=== PATIENT | female | born 1960 | race Caucasian/White ===

== ENCOUNTER 2017-06-18 15:36 | Emergency (ER) | payer MEDICARE ==
[~2017-06-18] VITALS: Ht 167.6 cm; Wt 80.4 kg
[~2017-06-18 15:36] MED LIST: /AMLO25TA PO; BUPR300T34 PO; CARI350T19 PO; DICY10CA2 PO; HYDR12.55 PO; IPRASOL4 IN; PERC7.5T12 PO; PRED5SOL2 PO; SERT-138 PO; TRAZ100T2 PO; ZITH250T PO
[2017-06-18] MEDS ORDERED: methylPREDNISolone INJ 125 MG/2 ML VIAL (J2930) IV ONE (16:15)
[2017-06-18 16:50] LABS: VENOUS BASE EXCESS 9.7 (-2.0-2.0); VENOUS O2 SATURATION 85.8 % (60.0-80.0); VENOUS PARTIAL PRESSURE CO2 51.5 mmHg (38.0-50.0); VENOUS PARTIAL PRESSURE O2 51.5 mmHg (30.0-50.0); VENOUS STANDARD HCO3 33.1 MEQ/L; VENOUS TOTAL CO2 36.9 MEQ/L (24.0-28.0)
[2017-06-18 17:00] LABS: BASO % 0.1 % (0.0-1.0); EOS # 0.1 K/mm3 (0.0-0.50); EOS % 0.6 % (0.0-3.0); LARGE UNSTAINED CELL # 0.1 K/mm3 (0.0-0.4); LARGE UNSTAINED CELL % 0.5 % (0.0-4.0); LYMPH # 0.6 K/mm3 (1.5-4.5); LYMPH % 4.6 % (24.0-44.0); MEAN CORPUSCULAR HEMOGLOBIN 27.6 pg (27.0-33.0); MEAN CORPUSCULAR VOLUME 86.2 fl (80.0-96.0); MONO # 0.4 K/mm3 (0.0-0.8); MONO % 3.2 % (0.0-5.0); PLATELET COUNT, AUTOMATED 316 k/mm3 (150-450); RED CELL DISTRIBUTION WIDTH 12.2 % (11.5-14.5); WHITE BLOOD COUNT 12.1 K/mm3 (4.0-10.0)
[2017-06-18] MEDS: IPRATROPIUM 0.5MG/ALBUTEROL 2.5MG INH SOL UD 3ML (DUONEB)(J7620) NEB PRN ×3 (17:08→17:27)
[2017-06-18 17:21] LABS: ANION GAP 10 MEQ/L (8-16); BLOOD UREA NITROGEN 9 MG/DL (7-18); CALCIUM LEVEL 9.2 MG/DL (8.5-10.1); CARBON DIOXIDE LEVEL 32 MEQ/L (21-32); CHLORIDE LEVEL 94 MEQ/L (98-107); CREATININE FOR GFR 0.79 MG/DL (0.55-1.02); GLOMERULAR FILTRATION RATE > 60.0 (>51); GLUCOSE, FASTING 132 MG/DL (70-105); POTASSIUM SERUM 3.1 MEQ/L (3.5-5.1); SODIUM LEVEL 136 MEQ/L (136-145)
--- NOTE | 2017-06-18 17:26 | REP ---
Chest x-ray: Two views. History: Dyspnea and cough. Findings: Oxygen delivery tubing and ECG monitoring electrodes overlie the chest. There is a dorsal column stimulator in the mid thoracic level. The lungs are slightly hyperinflated. There are bibasilar linear opacities consistent with discoid atelectasis. These appear to be new when compared with the August 10, 2013 studies. There is a healed rib fracture on the right posterolaterally involving rib number 6. Heart is not enlarged. The patient is status post cervical discectomy and ventral fusion plating. Impression: Mild hyperinflation. Bibasilar discoid atelectasis versus linear fibrosis. Dorsal column stimulator in the thoracic spine and ventral discectomy and fusion plating in the cervical spine noted. Signed by Maurice iDas MD 06/19/2017 09:11 A
[2017-06-18] MEDS ORDERED: MOXIFLOXACIN 400 MG TAB PO ONE (18:00)
[2017-06-18] MEDS ORDERED: PRED20TA PO (18:15)
[2017-06-18] MEDS ORDERED: AVEL1TAB3 PO (18:15)
[2017-06-18] MEDS ORDERED: ALBUTEROL 90 MCG/ACT 8GM HFA INHALER INH ONE (18:15)
[2017-06-18] MEDS ORDERED: POTASSIUM CHLORIDE 10 MEQ SR TABLET PO ONE (18:15)
[2017-06-18 18:46] VITALS: BP 144/68
--- NOTE | 2017-06-18 20:39 | ECGEPIP ---
Stationary ECG Study - ED Test Date: 2017-06-18 Pat Name: JANETH VILLA Department: Room: - Gender: F [employer] Analyst: dayan : 1960 Requested By: WAYLON DOZIER Order Number: [id number] Reading MD: Rox Dean Measurements Intervals [place] Rate: 74 P: -54 WI: 136 QRS: 38 QRSD: 112 T: 101 QT: 409 QTc: 455 Interpretive Statements SINUS RHYTHM MODERATE INTRAVENTRICULAR CONDUCTION DELAY ST DEVIATION AND MODERATE T-WAVE ABNORMALITY, CONSIDER ISCHEMIA, MORE PRONOUNCED COMPARED 08/09/13 Electronically Signed On 06-18-2017 20:38:59 EDT by Rox Dean
== END 2017-06-18 18:53 | disposition home or self-care (01) ==
LOC: M ED 15:36
DX: J44.1 Chronic obstructive pulmonary disease with (acute) exacerbation (principal); Z87.891 Personal history of nicotine dependence; Z88.8 Allergy status to other drugs, medicaments and biological substances; Z91.048 Other nonmedicinal substance allergy status; Z79.52 Long term (current) use of systemic steroids; Z79.899 Other long term (current) drug therapy
CPT/HCPCS: 71020; 80048; 82550; 82553; 82803; 83880; 84484; 85025; 85379; 87040; 87077; 87186; 93005; 94640; 96374; 99285; J2930

== ENCOUNTER 2018-05-07 17:26 | Observation (INO) | payer MEDICARE ==
[2018-05-07] MEDS: NS 1,000 ML IV ×2 (19:22→22:04)
[2018-05-07 20:03] LABS: LACTIC ACID SEPSIS PROTOCOL 1.6 MMOL/L (0.4-2.0)
[2018-05-07 20:06] LABS: ALBUMIN 3.3 GM/DL (3.2-5.2); ALBUMIN/GLOBULIN RATIO 1.06 (1.00-1.93); ALKALINE PHOSPHATASE 69 U/L (45-117); ALT/SGPT 18 U/L (12-78); AMYLASE 41 U/L (25-115); ANION GAP 7 MEQ/L (8-16); AST/SGOT 19 U/L (7-37); BASO % 0.2 % (0.0-1.0); BILIRUBIN,DIRECT < 0.1 MG/DL (0.0-0.2); BILIRUBIN,TOTAL 0.5 MG/DL (0.2-1.0); BLOOD UREA NITROGEN 38 MG/DL (7-18); CARBON DIOXIDE LEVEL 31 MEQ/L (21-32); CHLORIDE LEVEL 99 MEQ/L (98-107); CPK CREATINE PHOSPHOKINASE 94 U/L (26-192); CREATININE FOR GFR 2.05 MG/DL (0.55-1.30); EOS # 0.1 10^3/uL (0.0-0.50); EOS % 1.2 % (0.0-3.0); GLOMERULAR FILTRATION RATE 26.5 (>51); GLUCOSE, FASTING 100 MG/DL (70-100); HEMOGLOBIN 12.2 g/dl (12.0-15.5); IMMATURE GRANULOCYTE % 0.5 % (0-3.0); LIPASE 133 U/L (73-393); LYMPH # 1.1 10^3/uL (1.5-4.5); MB/CK RELATIVE INDEX 2.12 (< OR =4); MEAN CORPUSCULAR HEMOGLOBIN 27.1 pg (27.0-33.0); MEAN CORPUSCULAR HGB CONC 31.3 g/dl (32.0-36.5); MEAN CORPUSCULAR VOLUME 86.5 fl (80.0-96.0); MONO # 0.6 10^3/uL (0.0-0.8); MONO % 7.4 % (0.0-5.0); NEUTROPHILS # 6.3 10^3/uL (1.8-7.7); NEUTROPHILS % 77.7 % (36.0-66.0); PLATELET COUNT, AUTOMATED 279 10^3/uL (150-450); POTASSIUM SERUM 4.4 MEQ/L (3.5-5.1); RED BLOOD COUNT 4.51 10^6/uL (4.00-5.40); RED CELL DISTRIBUTION WIDTH 12.6 % (11.5-14.5); SODIUM LEVEL 137 MEQ/L (136-145); TOTAL PROTEIN 6.4 GM/DL (6.4-8.2); TROPONIN I < 0.02 NG/ML (< 0.10); WHITE BLOOD COUNT 8.2 10^3/uL (4.0-10.0)
[2018-05-07 20:13] LABS: KETONE, URINE AUTO RFX TRACE mg/dL (NEGATIVE); LEUKOCYTE ESTERASE UR AUTO RFX NEGATIVE (NEGATIVE); MUCUS, URINE RFX SMALL (NEGATIVE); NITRITE, URINE AUTO RFX NEGATIVE (NEGATIVE); RBC, URINE AUTO RFX 6 /HPF (0-3); SPECIFIC GRAVITY UR AUTO RFX 1.016 (1.002-1.035); SQUAM EPITHELIAL CELL UR AURFX 0 /HPF (0-6); WBC, URINE AUTO RFX 2 /HPF (0-3)
[2018-05-07 20:27] LABS: CONTROL LINE HCG INT CTR LINE PRESENT; HCG, SERUM QUALITATIVE NEGATIVE (NEGATIVE)
[2018-05-07] MEDS: ONDANSETRON 4MG/2ML VIAL (J2405) IV (20:45)
[2018-05-07 21:04] LABS: ABG BASE EXCESS -1.3 (-2.0-2.0); ABG O2 SATURATION 95.9 % (95.0-99.0); ABG PARTIAL PRESSURE CO2 48.4 mmHg (35.0-45.0); ABG PARTIAL PRESSURE O2 87.4 mmHg (75.0-100.0); ABG STANDARD HCO3 23.4 MEQ/L (22.0-26.0); ABG TOTAL CO2 26.5 MEQ/L (22.0-29.0); ABG pH (ARTERIAL) 7.331 UNITS (7.350-7.450)
[2018-05-08] MEDS ORDERED: IPRATROPIUM 0.5MG/ALBUTEROL 2.5MG INH SOL UD 3ML (DUONEB)(J7620) INH (01:00)
[2018-05-08] MEDS ORDERED: BISACODYL 5 MG TAB PO (01:00)
[2018-05-08] MEDS: BACLOFEN 10 MG TAB PO ×3 (02:11→20:29)
[2018-05-08] MEDS: NS 1,000 ML IV ×3 (02:12→20:40)
[2018-05-08] MEDS: GABAPENTIN 400 MG CAP PO ×4 (02:12→20:29)
[2018-05-08] MEDS: traZODone 100 MG TAB PO ×3 (02:12→22:18)
[2018-05-08] MEDS: buPROPion **SR TABLET** (ZYBAN) 150MG PO ×3 (03:00→20:29)
[2018-05-08] MEDS: HEPARIN SOD (PORCINE) 5000 UNITS/ML VIAL SC ×3 (05:06→20:36)
[2018-05-08 06:44] LABS: ALBUMIN 2.8 GM/DL (3.2-5.2); ALBUMIN/GLOBULIN RATIO 1.12 (1.00-1.93); ALKALINE PHOSPHATASE 59 U/L (45-117); ALT/SGPT 15 U/L (12-78); ANION GAP 5 MEQ/L (8-16); AST/SGOT 13 U/L (7-37); BILIRUBIN,TOTAL 0.4 MG/DL (0.2-1.0); BLOOD UREA NITROGEN 29 MG/DL (7-18); CALCIUM LEVEL 7.5 MG/DL (8.5-10.1); CARBON DIOXIDE LEVEL 31 MEQ/L (21-32); CHLORIDE LEVEL 106 MEQ/L (98-107); CREATININE FOR GFR 1.42 MG/DL (0.55-1.30); GLOMERULAR FILTRATION RATE 40.4 (>51); GLUCOSE, FASTING 97 MG/DL (70-100); MAGNESIUM LEVEL 1.9 MG/DL (1.8-2.4); POTASSIUM SERUM 3.8 MEQ/L (3.5-5.1); SODIUM LEVEL 142 MEQ/L (136-145); TOTAL PROTEIN 5.3 GM/DL (6.4-8.2)
[2018-05-08] MEDS: ADVAIR HFA 230/21MCG INHALER INH ×2 (09:00→21:23)
[2018-05-08] MEDS: SERTRALINE 100 MG TAB PO (09:12)
[2018-05-08] MEDS: ACETAMINOPHEN TAB 650MG DOSE (2X325MG) PO (20:30)
[2018-05-09] MEDS: ONDANSETRON 4 MG TAB (S0181) PO (03:37)
[2018-05-09] MEDS: ACETAMINOPHEN TAB 650MG DOSE (2X325MG) PO (04:33)
[2018-05-09] MEDS: HEPARIN SOD (PORCINE) 5000 UNITS/ML VIAL SC ×2 (05:09→14:36)
[2018-05-09 06:27] LABS: BASO % 0.4 % (0.0-1.0); EOS # 0.2 10^3/uL (0.0-0.50); EOS % 3.5 % (0.0-3.0); HEMATOCRIT 34.5 % (36.0-47.0); HEMOGLOBIN 10.7 g/dl (12.0-15.5); IMMATURE GRANULOCYTE % 0.4 % (0-3.0); LYMPH # 1.2 10^3/uL (1.5-4.5); LYMPH % 23.9 % (24.0-44.0); MEAN CORPUSCULAR HEMOGLOBIN 27.4 pg (27.0-33.0); MEAN CORPUSCULAR VOLUME 88.5 fl (80.0-96.0); MONO # 0.5 10^3/uL (0.0-0.8); MONO % 9.5 % (0.0-5.0); NEUTROPHILS % 62.3 % (36.0-66.0); PLATELET COUNT, AUTOMATED 237 10^3/uL (150-450); RED CELL DISTRIBUTION WIDTH 12.4 % (11.5-14.5); WHITE BLOOD COUNT 4.9 10^3/uL (4.0-10.0)
[2018-05-09 06:54] LABS: ANION GAP 5 MEQ/L (8-16); BLOOD UREA NITROGEN 17 MG/DL (7-18); CALCIUM LEVEL 8.4 MG/DL (8.5-10.1); CARBON DIOXIDE LEVEL 32 MEQ/L (21-32); CHLORIDE LEVEL 108 MEQ/L (98-107); CREATININE FOR GFR 0.91 MG/DL (0.55-1.30); GLOMERULAR FILTRATION RATE > 60.0 (>51); GLUCOSE, FASTING 92 MG/DL (70-100); POTASSIUM SERUM 4.5 MEQ/L (3.5-5.1); SODIUM LEVEL 145 MEQ/L (136-145)
[2018-05-09] MEDS: SERTRALINE 100 MG TAB PO (09:08)
[2018-05-09] MEDS: BACLOFEN 10 MG TAB PO (09:08)
[2018-05-09] MEDS: GABAPENTIN 400 MG CAP PO ×2 (09:08→15:19)
[2018-05-09] MEDS: buPROPion **SR TABLET** (ZYBAN) 150MG PO (09:08)
[2018-05-09] MEDS: ADVAIR HFA 230/21MCG INHALER INH (11:40)
[2018-05-09] MEDS ORDERED: KETOROLAC 30 MG/ML VIAL (J1885) IV (13:15)
[2018-05-09] MEDS: ACETAMINOPHEN 500 MG TAB PO (15:20)
== END 2018-05-09 16:29 | disposition home or self-care (01) ==
LOC: M ED INP 17:27 → M MSPAV 05-08 01:52 → M ED 17:26
DX: N17.9 Acute kidney failure, unspecified (principal); E86.0 Dehydration; R19.7 Diarrhea, unspecified; K52.9 Noninfective gastroenteritis and colitis, unspecified; F32.9 Major depressive disorder, single episode, unspecified; F41.9 Anxiety disorder, unspecified; J44.9 Chronic obstructive pulmonary disease, unspecified; I10 Essential (primary) hypertension; M54.5 Low back pain; M54.2 Cervicalgia; Z79.899 Other long term (current) drug therapy
CPT/HCPCS: J2405

== ENCOUNTER 2018-08-17 22:52 | Emergency (ER) | payer MEDICARE ==
[2018-08-17] MEDS: DERMABOND TOPICAL SKIN ADHESIVE TOP (23:45)
[2018-08-18] MEDS: NORCO, ANEXSIA 5/325MG TABLET (HYDROcodone/ACETAMINOPHEN) PO (00:15)
== END 2018-08-18 00:29 | disposition home or self-care (01) ==
LOC: M ED 22:52
DX: S61.211A Laceration without foreign body of left index finger without damage to nail, initial encounter (principal); W22.8XXA Striking against or struck by other objects, initial encounter; Y92.019 Unspecified place in single-family (private) house as the place of occurrence of the external cause
CPT/HCPCS: 12001

== ENCOUNTER 2020-08-23 20:23 | Inpatient (IN) | payer MEDICARE ==
[~2020-08-23] VITALS: Ht 167.6 cm; Wt 75.6 kg
[~2020-08-23 20:23] MED LIST changes: -/AMLO25TA PO; +AMLO1TAB25 PO; +AVEL1TAB3 PO; +BACL10TA2 PO; +BACL1TAB8 PO; +BREO1INH3 INH; +BUPR150T5 PO; +GABA-845 PO; +HYDR-3715 PO; +IPRA0.00 INH; +LISI-538 PO; +MELO15TA28 PO; +NORV2TAB PO; +PRED20TA PO
[2020-08-23] MEDS ORDERED: NS 1,000 ML IV ONE (21:00)
[2020-08-23] MEDS ORDERED: ACETAMINOPHEN TAB 650MG DOSE (2X325MG) PO ONE (21:00)
[2020-08-23] MEDS ORDERED: KETOROLAC 30 MG/ML 1ML VIAL IV ONE (21:00)
[2020-08-23] MEDS ORDERED: ONDANSETRON 4MG/2ML VIAL IV ONE (21:00)
[2020-08-23 21:57] LABS: HEMATOCRIT 34.4 % (36.0-47.0); MEAN CORPUSCULAR HEMOGLOBIN 27.2 pg (27.0-33.0); MEAN CORPUSCULAR VOLUME 85.1 fl (80.0-96.0); RED BLOOD COUNT 4.04 10^6/uL (4.00-5.40); WHITE BLOOD COUNT 1.3 10^3/uL (4.0-10.0)
[2020-08-23 22:07] LABS: INR 1.05; PARTIAL THROMBOPLASTIN TIME 27.2 SECONDS (24.2-38.5); PROTHROMBIN TIME 13.9 SECONDS (12.5-14.3)
[2020-08-23 22:14] LABS: PLATELET COUNT, AUTOMATED 83 10^3/uL (150-450)
[2020-08-23 22:22] LABS: ATYPICAL LYMPH 1 % (0-5); BASOPHILS 1 % (0-1); LYMPHOCYTES 13 % (16-44); MONOCYTES 13 % (0-5); MYELOCYTES 2 % (0-0); NEUTROPHILS 70 % (28-66); PLATELET ESTIMATE DECREASED (NORMAL)
[2020-08-23 22:26] LABS: ALBUMIN 3.1 GM/DL (3.2-5.2); ALT/SGPT 26 U/L (12-78); BILIRUBIN,DIRECT 0.1 MG/DL (0.0-0.2); BILIRUBIN,TOTAL 0.4 MG/DL (0.2-1.0); BLOOD UREA NITROGEN 18 MG/DL (7-18); CALCIUM LEVEL 8.1 MG/DL (8.8-10.2); CARBON DIOXIDE LEVEL 31 MEQ/L (21-32); CHLORIDE LEVEL 95 MEQ/L (98-107); CK-MB VALUE MASS < 1.0 NG/ML (<3.6); CPK CREATINE PHOSPHOKINASE 55 U/L (26-192); CREATININE FOR GFR 0.98 MG/DL (0.55-1.30); GLOMERULAR FILTRATION RATE > 60.0 (>45); GLUCOSE, FASTING 121 MG/DL (70-100); LIPASE 156 U/L (73-393); MB/CK RELATIVE INDEX 1.82 (< OR =4); POTASSIUM SERUM 3.5 MEQ/L (3.5-5.1); SODIUM LEVEL 134 MEQ/L (136-145); TOTAL PROTEIN 6.1 GM/DL (6.4-8.2); TROPONIN I < 0.02 NG/ML (< 0.10)
[2020-08-23] MEDS ORDERED: ISOVUE-370 76% 100ML VIAL As Ordered ONE (23:10)
--- NOTE | 2020-08-24 00:13 | REPVR ---
PROCEDURE INFORMATION: Exam: CT Abdomen And Pelvis With Contrast Exam date and time: 08/23/2020 11:21 PM Age: 60 years old Clinical indication: Fever; Abdominal pain; Generalized; Additional info: Generalized abd pain, febrile TECHNIQUE: Imaging protocol: Computed tomography of the abdomen and pelvis with intravenous contrast. Radiation optimization: All CT scans at this facility use at least one of these dose optimization techniques: automated exposure control; mA and/or kV adjustment per patient size (includes targeted exams where dose is matched to clinical indication); or iterative reconstruction. Contrast material: ISOVUE 370; Contrast volume: 100 ml; Contrast route: INTRAVENOUS (IV); COMPARISON: CT ABD PELVIS W/O CONTRAST 05/07/2018 8:33 PM FINDINGS: Tubes, catheters and devices: A neurostimulator device was partially imaged. Lungs: There is atelectasis in the right lower lobe. The lungs were not fully imaged. Heart: No cardiomegaly or pericardial effusion. Liver: Unremarkable. No liver lesion is identified. The contour of the liver is smooth. No hepatomegaly is noted. Gallbladder and bile ducts: No calcified gallstones are noted. No gallbladder wall thickening, pericholecystic fluid, or pericholecystic inflammatory changes are identified. No dilation of the bile ducts is noted. No calcified stones are seen in the common bile duct. Pancreas: Normal. No dilation of the main pancreatic duct is noted. There is no inflammatory fat stranding around the pancreas to suggest acute pancreatitis. Spleen: Normal. No splenomegaly is noted. Adrenals: Normal. No adrenal mass is noted. Kidneys and ureters: The kidneys are normal in appearance. No renal lesion is noted. No stones are noted in the kidneys or ureters. There is no hydronephrosis or hydroureter. Stomach and bowel: There is thickening of the wall of the gastric antrum. The small bowel is unremarkable. There is sigmoid diverticulosis without evidence for diverticulitis. There is no evidence for a bowel obstruction, colitis, pneumatosis intestinalis, intussusception, volvulus, or perforated viscus. There is a 5 mm focus of high density within the lumen of the cecum, which may represent ingested material. Appendix: There is intraluminal high density within the appendix, which may represent high density ingested material or appendicoliths. The appendix is not dilated and there is no inflammatory fat stranding or fluid around the appendix to indicate appendicitis. Intraperitoneal space: No abscess. No ascites. No free air. Retroperitoneal space: No fluid collection. No mass. Vasculature: The abdominal aorta is patent, normal in caliber, and there is no dissection. The iliac arteries, common femoral arteries, renal arteries, celiac artery, superior mesenteric artery, and inferior mesenteric artery are patent. There are extensive atherosclerotic calcifications. Lymph nodes: No enlarged lymph nodes. Urinary bladder: The partially distended urinary bladder is unremarkable. No stones or masses are seen in the bladder. Reproductive: There has been a hysterectomy. Bones/joints: There is no fracture or dislocation. No suspicious osteolytic or osteoblastic lesion. There are degenerative changes involving the lumbar spine. Soft tissues: There is a small fat containing periumbilical hernia located just to the left of the umbilicus that is similar in appearance compared to the prior CT on 05/07/2018. IMPRESSION: 1. Thickening of the wall of the gastric antrum, which may indicate gastritis. 2. Sigmoid diverticulosis without evidence for diverticulitis. 3. Small fat containing periumbilical hernia located just to the left of the umbilicus that is similar in appearance compared to the prior CT on 05/07/2018. Electronically signed by: Richard Barahona On 08/24/2020 00:13:33 AM
[2020-08-24] MEDS ORDERED: NS 2,260 ML in IV 1 EA IV ONE (00:30)
[2020-08-24] MEDS ORDERED: PIPERACILLIN/TAZOBACTAM SOD 3.375 GM in D5W MINI-BAG PLUS 50 ML IV ONE (00:30)
--- NOTE | 2020-08-24 01:12 | REPVR ---
PROCEDURE INFORMATION: Exam: XR Chest, 1 View Exam date and time: 08/24/2020 12:51 AM Age: 60 years old Clinical indication: Pain; Neutropenic fever, unknown source TECHNIQUE: Imaging protocol: XR of the chest Views: 1 view. COMPARISON: CR Chest, 2 view PA, Lat 06/18/2017 4:26 PM FINDINGS: Tubes, catheters and devices: Neurostimulator leads are noted in the thoracic spine. Lungs: Unremarkable. No consolidation. No pulmonary edema. Pleural space: Unremarkable. No pleural effusion or pneumothorax is identified. Heart/Mediastinum: The cardiac silhouette is top normal in size. Vasculature: There are atherosclerotic calcifications of the aortic arch. Bones/joints: Screw and plate fixation hardware is noted in the cervical spine, which was not fully imaged. There are old healed fracture deformities involving the right posterolateral 6th and 7th ribs. IMPRESSION: No radiographic evidence for an acute cardiopulmonary process. Electronically signed by: Richard Barahona On 08/24/2020 01:12:55 AM
[2020-08-24] MEDS ORDERED: HYDR12.55 PO (01:13)
[2020-08-24] MEDS ORDERED: VITMTA PO (01:13)
[2020-08-24] MEDS ORDERED: TRAZ-189 PO (01:13)
[2020-08-24] MEDS ORDERED: GABA800T4 PO (01:13)
[2020-08-24] MEDS ORDERED: BREO1INH INH (01:13)
[2020-08-24] MEDS ORDERED: SERT-138 PO (01:13)
[2020-08-24] MEDS ORDERED: ALBU83IN INH (01:13)
[2020-08-24 04:42] LABS: INFLUENZA A AMPLIFICATION NEGATIVE (NEGATIVE); INFLUENZA B AMPLIFICATION NEGATIVE (NEGATIVE)
[2020-08-24] MEDS ORDERED: ALBUTEROL SULFATE 2.5 MG/0.5 ML INH NEB SOLN INH PRN (06:15)
[2020-08-24 06:17] LABS: HEMATOCRIT 32.2 % (36.0-47.0); HEMOGLOBIN 10.3 g/dl (12.0-15.5); MEAN CORPUSCULAR HEMOGLOBIN 27.5 pg (27.0-33.0); MEAN CORPUSCULAR VOLUME 86.1 fl (80.0-96.0); RED BLOOD COUNT 3.74 10^6/uL (4.00-5.40); WHITE BLOOD COUNT 1.4 10^3/uL (4.0-10.0)
[2020-08-24 06:19] LABS: PLATELET COUNT, AUTOMATED 74 10^3/uL (150-450)
--- NOTE | 2020-08-24 06:31 | HPEPDOC ---
[facility] Medical History & Physical Date of Admission Aug 24, 2020 Date of Service: Aug 24, 2020 Attending Physician: LORRAINE QUESADA DO History and Physical CHIEF COMPLAINT: Fever and abdominal pain HISTORY OF PRESENT ILLNESS: Patient is a 60-year-old female who presented to the [facility] emergency department with complaint of abdominal pain and fever. She stated that on Sunday into Sunday she developed some abdominal pain was mainly located in her lower abdomen. She stated that on Sunday she had developed fevers. Additionally she did note some nausea and had a couple episodes of emesis. She denied any diarrhea. She does state that she had some constipation. Patient stated that she continued to have abdominal pain as well as fevers and chills. She is also currently presented to the [facility] emergency department. On presentation to the emergency department the patient was found to be febrile with a temperature of 101.2 but otherwise vitally stable. Laboratory examination demonstrated a pancytopenia with a leukocyte count of 1.3 with moderate neutroph orestes, absolute neutrophil count of 900, anemia with hemoglobin 11 and, cytopenia with the count of 83. Blood cultures were drawn and the patient was started on empiric antibiotics for neutropenic fever. Hospitalist service was consulted and the patient was admitted for further evaluation and management PAST MEDICAL HISTORY: 1. Hypertension 2. COPD 3. Depression 4. Chronic Low Back Pain PAST SURGICAL HISTORY: 1. Discectomy 2. Spinal Stimulator placement 3. Hysterectomy SOCIAL HISTORY: Patient lives at home with her . She is a former smoker she smoked approximately 1 pack per day since the age of 17. She quit 5 years ago. She denies any history of IV or illicit drug use. she's currently on disability secondary to chronic neck and back pain. FAMILY HISTORY: Patient denies any family history of cancers or autoimmune diseases. ALLERGIES: Please see below. REVIEW OF SYSTEMS: CONSTITUTIONAL: Admits to fevers and chills. denies night sweats. denies unintentional weight loss or weight gain HEENT: Denies headache. Denies dysphagia. Denies odontophagia. Denies change in vision.. CARDIOVASCULAR: Denies palpitations. Denies feelings of the heart racing. Denies chest pain. RESPIRATORY:Ours of breath. Denies cough. Denies wheezing.. GASTROINTESTINAL: Admits to abdominal pain. Admits to constipation. Denies diarrhea. Denies bloody stools. Admits to nausea and vomiting. GENITOURINARY: As difficulty with urination. Denies increased frequency. denies dysuria.. SKIN: Denies any rashes or lesions. MUSCULOSKELETAL: Admits to chronic lower back pain as well as neck pain. NEUROLOGICAL: Denies any changes in her gait. denies any changes in her speech. PSYCHIATRIC: Admits to History of anxiety depression.. ENDOCRINE: Denies any heat intolerance or cold intolerance. HEMATOLOGIC/LYMPHATIC: Denies any history of easy bruising or bleeding. Denies any history of DVT or pulmonary embolism.. HOME MEDICATIONS: Please see below. PHYSICAL EXAMINATION: VITAL SIGNS: Temperature 101.2, pulse 94, respiratory rate 20, blood pressure 114\50, pulse oximetry 99 % on 2 L nasal cannula GENERAL APPEARANCE: She is awake alert oriented. She does not appear any acute distress. She is lying comfortably in bed.. HEENT: Atraumatic. Normocephalic. Eyes are nonicteric. Trachea is midline. Mucou s membranes are pink and moist.. CARDIOVASCULAR: Normal S1-S2. Regular rate and rhythm. No clicks rubs or murmurs.. LUNGS: Clear vesicular breath sounds bilaterally. Good respiratory effort. No wheezes rhonchi or rales. Symmetric chest expansion. ABDOMEN: Soft nondistended. Mild tenderness in the lower left and right quadrants. no rebound tenderness or guarding. Slightly hypoactive bowel sounds. EXTREMITIES: No edema. Full and equal pulses in bilateral upper and lower extremities. NEUROLOGICAL: No focal neurological deficits. PSYCHIATRIC: Mood and Affect appear appropriate. LABORATORY DATA: See below. IMAGING: PROCEDURE INFORMATION: Exam: CT Abdomen And Pelvis With Contrast Exam date and time: 08/23/2020 11:21 PM Age: 60 years old Clinical indication: Fever; Abdominal pain; Generalized; Additional info: Generalized abd pain, febrile TECHNIQUE: Imaging protocol: Computed tomography of the abdomen and pelvis with intravenous contrast. Radiation optimization: All CT scans at this facility use at least one of these dose optimization techniques: automated exposure control; mA and/or kV adjustment per patient size (includes targeted exams where dose is matched to clinical indication); or iterative reconstruction. Contrast material: ISOVUE 370; Contrast volume: 100 ml; Contrast route: INTRAVENOUS (IV); COMPARISON: CT ABD PELVIS W/O CONTRAST 05/07/2018 8:33 PM FINDINGS: Tubes, catheters and devices: A neurostimulator device was partially imaged. Lungs: There is atelectasis in the right lower lobe. The lungs were not fully imaged. Heart: No cardiomegaly or pericardial effusion. Liver: Unremarkable. No liver lesion is identified. The contour of the liver is smooth. No hepatomegaly is noted. Gallbladder and bile ducts: No calcified gallstones are noted. No gallbladder wall thickening, pericholecystic fluid, or pericholecystic inflammatory changes are identified. No dilation of the bile ducts is noted. No calcified stones are seen in the common bile duct. Pancreas: Normal. No dilation of the main pancreatic duct is noted. There is no inflammatory fat stranding around the pancreas to suggest acute pancreatitis. Spleen: Normal. No splenomegaly is noted. Adrenals: Normal. No adrenal mass is noted. Kidneys and ureters: The kidneys are normal in appearance. No renal lesion is noted. No stones are noted in the kidneys or ureters. There is no hydronephrosis or hydroureter. Stomach and bowel: There is thickening of the wall of the gastric antrum. The small bowel is unremarkable. There is sigmoid diverticulosis without evidence for diverticulitis. There is no evidence for a bowel obstruction, colitis, pneumatosis intestinalis, intussusception, volvulus, or perforated viscus. There is a 5 mm focus of high density within the lumen of the cecum, which may represent ingested material. Appendix: There is intraluminal high density within the appendix, which may represent high density ingested material or appendicoliths. The appendix is not dilated and there is no inflammatory fat stranding or fluid around the appendix to indicate appendicitis. Intraperitoneal space: No abscess. No ascites. No free air. Retroperitoneal space: No fluid collection. No mass. Vasculature: The abdominal aorta is patent, normal in caliber, and there is no dissection. The iliac arteries, common femoral arteries, renal arteries, celiac artery, superior mesenteric artery, and inferior mesenteric artery are patent. There are extensive atherosclerotic calcifications. Lymph nodes: No enlarged lymph nodes. Urinary bladder: The partially distended urinary bladder is unremarkable. No stones or masses are seen in the bladder. Reproductive: There has been a hysterectomy. Bones/joints: There is no fracture or dislocation. No suspicious osteolytic or osteoblastic lesion. There are degenerative changes involving the lumbar spine. Soft tissues: There is a small fat containing periumbilical hernia located just to the left of the umbilicus that is similar in appearance compared to the prior CT on 05/07/2018. IMPRESSION: 1. Thickening of the wall of the gastric antrum, which may indicate gastritis. 2. Sigmoid diverticulosis without evidence for diverticulitis. 3. Small fat containing periumbilical hernia located just to the left of the umbilicus that is similar in appearance compared to the prior CT on 05/07/2018. Electronically signed by: Richard Barahona On 08/24/2020 00:13:33 AM PROCEDURE INFORMATION: Exam: XR Chest, 1 View Exam date and time: 08/24/2020 12:51 AM Age: 60 years old Clinical indication: Pain; Neutropenic fever, unknown source TECHNIQUE: Imaging protocol: XR of the chest Views: 1 view. COMPARISON: CR Chest, 2 view PA, Lat 06/18/2017 4:26 PM FINDINGS: Tubes, catheters and devices: Neurostimulator leads are noted in the thoracic spine. Lungs: Unremarkable. No consolidation. No pulmonary edema. Pleural space: Unremarkable. No pleural effusion or pneumothorax is identified. Heart/Mediastinum: The cardiac silhouette is top normal in size. Vasculature: There are atherosclerotic calcifications of the aortic arch. Bones/joints: Screw and plate fixation hardware is noted in the cervical spine, which was not fully imaged. There are old healed fracture deformities involving the right posterolateral 6th and 7th ribs. IMPRESSION: No radiographic evidence for an acute cardiopulmonary process. Electronically signed by: Richard Barahona On 08/24/2020 01:12:55 AM MICROBIOLOGY: Please see below. ASSESSMENT: Patient is a 60-year-old female who presented to the [facility] with complaint of abdominal pain and fever. On presentation the patient was febrile with a temperature of 101.2 as well as pancytopenic. She was admitted to hospital service for further evaluation and management. She was started on impact antibiotics for neutropenic fever. . PLAN: 1. SIRS -Patient presenting with fever and leukopenia. She is not tachycardic or hypotensive. Blood cultures currently pending. Patient started on Zosyn for neutropenic fever. -Source of infection is unknown. Patient does report abdominal pain mainly located in the left and right lower quadrant. On imaging there is some gastric antrum thickening adjusting possible gastritis although the patient denies any epigastric or left upper quadrant pain. 2. Neutropenic fever -Patient presented with neutropenia. White blood cell count of 1.3 acid-free count of approximately 900 suggesting moderate neutropenia. Currently receiving Zosyn -Origin of the patient's fever is currently unknown. Possibly infectious etiology such as viral. Patient's influenza negative. -Peripheral smear pending -LDH pending -Patient does have a history of spinal stimulator placement. If fever persists an etiology of her fevers remain unclear could be secondary to a abscess with spinal epidural abscess. Although the patient denies any pain in her spine that is increased from her baseline. 3. Pancytopenia -As stated previously unknown cause of her pancytopenia. Possibly infectious. Imaging does suggest gastritis although this is very nonspecific and the patient denies any pain in her left upper quadrant. Will order a H. pylori antigen as this can lead to some pancytopenia in chronic cases. -Patient's medications were reviewed. She is currently not taking any medications that could cause myelosuppression. -If her pancytopenia persists and an infectious etiology is ruled out she may benefit from a hematology consultation -Peripheral smear ordered and pending 4. COPD -Currently stable we'll continue patient's home meds. 5. DVT prophylaxis -Tommy's and sequentials Vital Signs Vital Signs Date Time Temp Pulse Resp B/P (MAP) Pulse Ox O2 Delivery O2 Flow Rate FiO2 08/24/20 05:25 2.0 08/24/20 04:00 55 16 120/66 (84) 98 Nasal Cannula 08/24/20 00:00 99.1 Laboratory Data Labs 24H Laboratory Tests 2 08/23/20 21:28: Neutrophils (%) (Auto) , Neutrophils # (Auto) , Nucleated Red Blood Cells % (auto) 0.0, Neutrophils 70H, Lymphocytes (Manual) 13L, Monocytes (Manual) 13H, Basophils (Manual) 1, Myelocytes 2H, Atypical Lymphocytes 1, Platelet Estimate DECREASED, Immature Platelet Fraction 3.0, Prothrombin Time 13.9, Prothromb Time International Ratio 1.05, Activated Partial Thromboplast Time 27.2, Anion Gap 8, Glomerular Filtration Rate > 60.0, Lactic Acid Level 1.3, Calcium Level 8.1L, Total Bilirubin 0.4, Direct Bilirubin 0.1, Aspartate Amino Transf (AST/SGOT) 29, Alanine Aminotransferase (ALT/SGPT) 26, Alkaline Phosphatase 67, Total Creatine Kinase 55, Creatine Kinase MB < 1.0, Creatine Kinase MB Relative Index 1.82, Troponin I < 0.02, Total Protein 6.1L, Albumin 3.1L, Albumin/Globulin Ratio 1.0L, Lipase 156, Coronavirus (COVID-19)(PCR) NEGATIVE, Influenza Type A (RT- PCR) NEGATIVE, Influenza Type B (RT-PCR) NEGATIVE 08/23/20 23:33: Urine Color YELLOW, Urine Appearance HAZY, Urine pH 5.0, Urine Specific [place] 1.023, Urine Protein 1+H, Urine Glucose (UA) NEGATIVE, Urine Ketones NEGATIVE, Urine Blood NEGATIVE, Urine Nitrite NEGATIVE, Urine Bilirubin NEGATIVE, Urine Urobilinogen 2.0H, Urine Leukocyte Esterase NEGATIVE, Urine WBC (Auto) 3, Urine RBC (Auto) 2, Urine Hyaline Casts (Auto) 3, Urine Bacteria (Auto) NEGATIVE, Ur ine Squamous Epithelial Cells 0, Urine Mucus (Auto) SMALL, Urine Sperm (Auto) CBC/BMP Laboratory Tests 08/23/20 21:28 Microbiology Microbiology 08/23/20 Blood Culture, Received Pending 08/23/20 Blood Culture, Received Pending Home Medications Scheduled Baclofen (Baclofen) 10 Mg Tab, 10 MG PO QID Bupropion Hcl (Bupropion HCl Sr) 150 Mg Tab, 150 MG PO DAILY Fluticasone/Vilanterol (Breo Ellipta 100-25 Mcg INH) 1 Each Blst.w.dev, 1 PUFF INH DAILY Gabapentin (Gabapentin) 800 Mg Tablet, 800 MG PO TID Hydrochlorothiazide (Hydrochlorothiazide) 12.5 Mg Tablet, 12.5 MG PO DAILY Lisinopril (Lisinopril) 20 Mg Tab, 20 MG PO DAILY Meloxicam (Meloxicam) 15 Mg Tab, 15 MG PO DAILY Multivitamins (Thera M Plus Tablet) 1 Each Tablet, 1 TAB PO DAILY Sertraline HCl (Sertraline HCl) 100 Mg Tablet, 100 MG PO DAILY Trazodone HCl (Trazodone HCl) 100 Mg Tablet, 200 MG PO QHS Scheduled PRN Albuterol Sulf (Albuterol Sulfate) 2.5 Mg/3 Ml Vial.neb, 2.5 MG INH QID PRN for SHORTNESS OF BREATH Allergies Coded Allergies: phenazopyridine (Verified Allergy, Mild, RASH, 08/23/20) TAPE (Verified Allergy, Unknown, 06/18/17) A-FIB/CHADSVASC A-FIB History Current/History of A-Fib/PAF?: No LYNDA MILES DO Aug 24, 2020 06:31
[2020-08-24 06:32] LABS: BLOOD UREA NITROGEN 15 MG/DL (7-18); CALCIUM LEVEL 7.8 MG/DL (8.8-10.2); CARBON DIOXIDE LEVEL 31 MEQ/L (21-32); CHLORIDE LEVEL 100 MEQ/L (98-107); GLOMERULAR FILTRATION RATE > 60.0 (>45); GLUCOSE, FASTING 97 MG/DL (70-100); LDH LACTATE DEHYDROGENASE 170 U/L (84-246); POTASSIUM SERUM 3.3 MEQ/L (3.5-5.1); SODIUM LEVEL 136 MEQ/L (136-145)
[2020-08-24 06:59] LABS: LYMPHOCYTES 43 % (16-44); MONOCYTES 8 % (0-5); NEUTROPHILS 48 % (28-66)
[2020-08-24 07:00] LABS: PLATELET ESTIMATE DECREASED (NORMAL)
[2020-08-24] MEDS: ADVAIR HFA 115/21MCG INHALER INH SCH ×2 (08:00→19:04)
[2020-08-24] MEDS ORDERED: POTASSIUM CHLORIDE 10 MEQ SR TABLET PO ONE (08:00)
[2020-08-24] MEDS: DOCUSATE SODIUM 100 MG CAP PO SCH ×2 (09:00→20:15)
[2020-08-24 09:09] LABS: VITAMIN B12 LEVEL 430 PG/ML (247-911)
[2020-08-24] MEDS: buPROPion **SR TABLET** (ZYBAN) 150MG PO SCH (09:28)
[2020-08-24] MEDS: GABAPENTIN 400 MG CAP PO SCH ×3 (09:28→20:15)
[2020-08-24] MEDS: PIPERACILLIN/TAZOBACTAM SOD 3.375 GM in D5W MINI-BAG PLUS 50 ML IV SCH ×3 (09:28→20:15)
[2020-08-24] MEDS: MULTIVITAMINS/MINERALS THERAP 1 TAB PO SCH (09:29)
[2020-08-24] MEDS: lisinopriL 20 MG TAB PO SCH (09:29)
[2020-08-24] MEDS: BACLOFEN 10 MG TAB PO SCH ×4 (09:29→20:14)
[2020-08-24] MEDS: hydroCHLOROthiazide 12.5 MG CAPSULE PO SCH (09:29)
[2020-08-24] MEDS ORDERED: MIRALAX *UNIT DOSE* 17GM PACKET PO PRN (11:30)
[2020-08-24 14:00] VITALS: BP 125/63
--- NOTE | 2020-08-24 19:45 | IPNPDOC ---
Subjective Date Seen The patient was seen on 08/24/20. Subjective Chief Complaint/HPI Patient is a 60 year old female who is here with neutropenic fever. Last fever was yesterday evening. This morning, she denies dyspnea, chest pain, or dysuria. She has constipation. Constitutional: Reports: Fever Pulmonary: Denies: Dyspnea Cardiovascular: Denies: Chest Pain Gastrointestinal: Reports: Constipation Genitourinary: Denies: Dysuria Objective Physical Examination General Exam: Positive: Alert, Cooperative, No Acute Distress Eye Exam: Positive: EOMI; Negative: Sclera icteric Neck Exam: Positive: Supple Chest Exam: Positive: Clear to auscultation Heart Exam: Positive: Rate Normal, Regular Rhythm Abdomen Exam: Positive: Normal bowel sounds, Soft Extremity Exam: Negative: Edema Neuro Exam: Positive: Normal Speech, Cranial Nerves 3-12 NL Psych Exam: Positive: Mental status NL, Mood NL Assessment /Plan Assessment Patient is a 60 year old female here with neutropenic fever. Last fever was yesterday evening. No obvious source of infection. Continues on broad spectrum antibiotics and pending blood culture, erhlichiosis, and h.pylori results. Plan/VTE VTE Prophylaxis Ordered?: Yes Plan 1. Neutropenic fever -On admission, WBC 1.3 with neutrophils 70% (ANC 910) -Fever of 101.2 on admission -Unknown etiology, on Zosyn -Pending blood cultures, h.pylori, and erhlichiosis 2. Pancytopenia -Not on medications that would cause pancytopenia -Continue to monitor 3. COPD -Stable -Continue inhalers 4. Hypertension -Continue lisinopril 5. Chronic low back pain -Continue pain regimen 6. Depression/Anxiety -Continue Bupropion 7. DVT ppx -TEDs and SCD VS, I&O, 24H, Fishbone Vital Signs/I&O Vital Signs Date Time Temp Pulse Resp B/P (MAP) Pulse Ox O2 Delivery O2 Flow Rate FiO2 08/24/20 14:00 96.9 80 18 125/63 (83) 97 Room Air 08/24/20 09:20 2.0 I&O- Last 24 Hours up to 6 AM 08/24/20 06:00 Intake Total 3310 ml Balance 3310 ml Laboratory Data 24H LABS Laboratory Tests 2 08/23/20 21:28: Neutrophils (%) (Auto) , Neutrophils # (Auto) , Nucleated Red Blood Cells % (auto) 0.0, Neutrophils 70H, Lymphocytes (Manual) 13L, Monocytes (Manual) 13H, Basophils (Manual) 1, Myelocytes 2H, Atypical Lymphocytes 1, Platelet Estimate DECREASED, Immature Platelet Fraction 3.0, Prothrombin Time 13.9, Prothromb Time International Ratio 1.05, Activated Partial Thromboplast Time 27.2, Anion Gap 8, Glomerular Filtration Rate > 60.0, Lactic Acid Level 1.3, Calcium Level 8.1L, Total Bilirubin 0.4, Direct Bilirubin 0.1, Aspartate Amino Transf (AST/SGOT) 29, Alanine Aminotransferase (ALT/SGPT) 26, Alkaline Phosphatase 67, Total Creatine Kinase 55, Creatine Kinase MB < 1.0, Creatine Kinase MB Relative Index 1.82, Troponin I < 0.02, Total Protein 6.1L, Albumin 3.1L, Albumin/Globulin Ratio 1.0L, Lipase 156, Coronavirus (COVID-19)(PCR) NEGATIVE, Influenza Type A (RT- PCR) NEGATIVE, Influenza Type B (RT-PCR) NEGATIVE 08/23/20 23:33: Urine Color YELLOW, Urine Appearance HAZY, Urine pH 5.0, Urine Specific [place] 1.023, Urine Protein 1+H, Urine Glucose (UA) NEGATIVE, Urine Ketones NEGATIVE, Urine Blood NEGATIVE, Urine Nitrite NEGATIVE, Urine Bilirubin NEGATIVE, Urine Urobilinogen 2.0H, Urine Leukocyte Esterase NEGATIVE, Urine WBC (Auto) 3, Urine RBC (Auto) 2, Urine Hyaline Casts (Auto) 3, Urine Bacteria (Auto) NEGATIVE, Urine Squamous Epithelial Cells 0, Urine Mucus (Auto) SMALL, Urine Sperm (Auto) 08/24/20 05:35: Neutrophils (%) (Auto) , Neutrophils # (Auto) , Nucleated Red Blood Cells % (auto) 0.0, Neutrophils 48, Lymphocytes (Manual) 43, Monocytes (Manual) 8H, Platelet Estimate DECREASED, Anion Gap 5L, Glomerular Filtration Rate > 60.0, Calcium Level 7.8L, Band Neutrophils 1, Red Blood Cell Morphology NORMAL, Differential Slide Review Report, Peripheral Blood Smear Path Consult PERIPHERAL SMEAR, Lactate Dehydrogenase 170, Vitamin B12 Level 430 CBC/BMP Laboratory Tests 08/23/20 21:28 08/24/20 05:35 Microbiology Microbiology 08/23/20 Blood Culture, Received Pending 08/23/20 Blood Culture, Received Pending MERYL MOCTEZUMA DO Aug 24, 2020 19:26
[2020-08-24 22:00] VITALS: BP 128/69
[2020-08-25] MEDS: PIPERACILLIN/TAZOBACTAM SOD 3.375 GM in D5W MINI-BAG PLUS 50 ML IV SCH ×4 (02:25→20:13)
[2020-08-25] MEDS: ACETAMINOPHEN TAB 650MG DOSE (2X325MG) PO PRN ×2 (02:25→10:13)
[2020-08-25 06:00] VITALS: BP 119/63
[2020-08-25 06:15] LABS: HEMATOCRIT 33.6 % (36.0-47.0); HEMOGLOBIN 10.8 g/dl (12.0-15.5); MEAN CORPUSCULAR HEMOGLOBIN 27.8 pg (27.0-33.0); MEAN CORPUSCULAR HGB CONC 32.1 g/dl (32.0-36.5); MEAN CORPUSCULAR VOLUME 86.4 fl (80.0-96.0); RED BLOOD COUNT 3.89 10^6/uL (4.00-5.40); WHITE BLOOD COUNT 2.2 10^3/uL (4.0-10.0)
[2020-08-25 06:24] LABS: PLATELET COUNT, AUTOMATED 86 10^3/uL (150-450)
[2020-08-25 07:25] LABS: EOSINOPHILS 1 % (0-3); MONOCYTES 12 % (0-5); NEUTROPHILS 37 % (28-66)
[2020-08-25 07:27] LABS: ATYPICAL LYMPH 7 % (0-5); LYMPHOCYTES 37 % (16-44); PLATELET ESTIMATE DECREASED (NORMAL)
[2020-08-25] MEDS: ADVAIR HFA 115/21MCG INHALER INH SCH ×2 (08:00→20:00)
[2020-08-25] MEDS: lisinopriL 20 MG TAB PO SCH (08:52)
[2020-08-25] MEDS: buPROPion **SR TABLET** (ZYBAN) 150MG PO SCH (08:52)
[2020-08-25] MEDS: hydroCHLOROthiazide 12.5 MG CAPSULE PO SCH (08:53)
[2020-08-25] MEDS: GABAPENTIN 400 MG CAP PO SCH ×3 (08:53→20:13)
[2020-08-25] MEDS: MULTIVITAMINS/MINERALS THERAP 1 TAB PO SCH (08:53)
[2020-08-25] MEDS: DOCUSATE SODIUM 100 MG CAP PO SCH (08:53)
[2020-08-25] MEDS: BACLOFEN 10 MG TAB PO SCH ×4 (08:53→20:12)
[2020-08-25] MEDS ORDERED: FLUBLOK(EGG FREE)(QUAD)INFLUENZA VACC 0.5ML SYRINGE 18YRS & OLDER IM ONE (09:00)
[2020-08-25 09:03] LABS: BLOOD UREA NITROGEN 11 MG/DL (7-18); CALCIUM LEVEL 8.6 MG/DL (8.8-10.2); CARBON DIOXIDE LEVEL 36 MEQ/L (21-32); CHLORIDE LEVEL 101 MEQ/L (98-107); FERRITIN 272 NG/ML (8-252); GLOMERULAR FILTRATION RATE > 60.0 (>45); GLUCOSE, FASTING 121 MG/DL (70-100); IRON (FE) 43 UG/DL (50-170); PERCENT SATURATION 20.9 % (13.2-45.0); SODIUM LEVEL 137 MEQ/L (136-145); TOTAL IRON BINDING CAPACITY 206 UG/DL (250-450); VITAMIN B12 LEVEL 492 PG/ML (247-911)
[2020-08-25 14:00] VITALS: BP 130/68
[2020-08-25 17:22] LABS: HIV 1&2 SCREEN CENTAUR NEGATIVE (NEGATIVE)
--- NOTE | 2020-08-25 18:38 | CR.PDOC ---
General Date of Consultation: Aug 25, 2020 Referring Provider: MERYL MOCTEZUMA DO Attending Physician: MERYL MOCTEZUMA DO Consultation REASON FOR CONSULTATION/CHIEF COMPLAINT: Pancytopenia HISTORY OF PRESENT ILLNESS: Ms. Liza Fischer is a 60-year-old woman currently admitted with febrile neutropenia. She reports no recurring episodes of infection prior to this admission. Reports a weight loss of 20 pounds over the past 6 months from watching her diet and being active. No fevers prior to this weekend. As far as she knows, her blood tests were previously normal with most recent blood tests under her primary care provider in June of this year normal according to the patient. ALLERGIES: Please see below. HOME MEDICATIONS: Please see below. PAST MEDICAL HISTORY: COPD. Hypertension. Chronic low back pain. PAST SURGICAL HISTORY: 1. Discectomy 2. Spinal Stimulator placement 3. Hysterectomy FAMILY HISTORY: Her mother had breast cancer. No history of blood disorders in the family. SOCIAL HISTORY: . Former smoker. Smoked from age [age] years old to 5 years ago. Denies drinking alcohol. REVIEW OF SYSTEMS: Reports chronic back pain. Reports dizziness which she attributes to COPD. 14 point review of systems negative except as noted above and in HPI. PHYSICAL EXAMINATION: VITAL SIGNS: Please see below. GENERAL APPEARANCE: Lying comfortably in bed, not in distress, communicative. HEENT: Pinkish conjunctiva, anicteric sclerae. Atraumatic, normocephalic. No cervical lymphadenopathy. RESPIRATORY: Lungs clear. No rales, rhonchi, no wheeze. CARDIOVASCULAR: S1, S2 regular. No murmur. No gallop. ABDOMEN: Soft, nontender, positive bowel sounds. No Hepatosplenomegaly. EXTREMITIES: No pedal edema. No cyanosis. No clubbing. No axillary lymphadenopathy. NEUROLOGICAL: Alert, oriented to time, place and person. Moves all extremities spontaneously. PSYCHIATRIC: Anxious. LABORATORY DATA: Please see below. ASSESSMENT/PLAN: 60-year-old with pancytopenia, currently admitted for febrile neutropenia. Workup for viral infection negative for Influenza a, influenza B and Covid 19. Iron studies consistent with anemia of chronic disease. Vitamin B12 normal. Peripheral smear review 08/24/2020 reported unremarkable monocytes, atypical lymphocytes, hypochromic, microcytic anemia, no blasts identified. CT abdomen and pelvis 08/23/2020 showed no enlarged lymph nodes and no splenomeg jose alfredo nor hepatomegaly. I recommended a bone marrow aspiration and biopsy to rule out an intrinsic bone marrow condition/disorder. This was discussed with the patient, however, she wanted more time to think about this. If she does agree to a bone marrow aspiration and biopsy, please have this done through interventional radiology. If patient is stable for discharge in the next few days, we'll arrange a follow- up appointment as an outpatient with bone marrow aspiration and biopsy to be considered as an outpatient. Thank you for referring Ms. Liza Fischer. Vital Signs/I&O Vital Signs Date Time Temp Pulse Resp B/P (MAP) Pulse Ox O2 Delivery O2 Flow Rate FiO2 08/25/20 14:00 98.2 72 19 130/68 (88) 95 Room Air 08/25/20 09:20 2.0 I&O- Last 24 Hours up to 6 AM 08/25/20 06:00 Intake Total 2330 ml Output Total 1600 ml Balance 730 ml Laboratory Data Labs 24H Laboratory Tests 2 08/25/20 05:58: Neutrophils (%) (Auto) , Nucleated Red Blood Cells % (auto) 0.0, Neutrophils 37, Band Neutrophils 6, Lymphocytes (Manual) 37, Monocytes (Manual) 12H, Eosinophils (Manual) 1, Atypical Lymphocytes 7H, Platelet Estimate DECREASED, Immature Platelet Fraction 2.6, Anion Gap 0L, Glomerular Filtration Rate > 60.0, Calcium Level 8.6L, Iron Level 43L, Total Iron Binding Capacity 206L, Transferrin % Saturation 20.9, Ferritin 272H, Vitamin B12 Level 492, HIV Antigen/Antibody Combo Qual NEGATIVE CBC/BMP Laboratory Tests 08/25/20 05:58 Microbiology Microbiology 08/23/20 Blood Culture - Preliminary, Resulted No growth after 24 hours . All specim... 08/23/20 Blood Culture - Preliminary, Resulted No growth after 24 hours . All specim... Allergies Coded Allergies: phenazopyridine (Verified Allergy, Mild, RASH, 08/23/20) TAPE (Verified Allergy, Unknown, 06/18/17) Home Medications Scheduled Baclofen (Baclofen) 10 Mg Tab, 10 MG PO QID, (Reported) Bupropion Hcl (Bupropion HCl Sr) 150 Mg Tab, 150 MG PO DAILY, (Reported) Fluticasone/Vilanterol (Breo Ellipta 100-25 Mcg INH) 1 Each Blst.w.dev, 1 PUFF INH DAILY, (Reported) Gabapentin (Gabapentin) 800 Mg Tablet, 800 MG PO TID, (Reported) Hydrochlorothiazide (Hydrochlorothiazide) 12.5 Mg Tablet, 12.5 MG PO DAILY, (Reported) Lisinopril (Lisinopril) 20 Mg Tab, 20 MG PO DAILY, (Reported) Meloxicam (Meloxicam) 15 Mg Tab, 15 MG PO DAILY, (Reported) Multivitamins (Thera M Plus Tablet) 1 Each Tablet, 1 TAB PO DAILY, (Reported) Sertraline HCl (Sertraline HCl) 100 Mg Tablet, 100 MG PO DAILY, (Reported) Trazodone HCl (Trazodone HCl) 100 Mg Tablet, 200 MG PO QHS, (Reported) Scheduled PRN Albuterol Sulf (Albuterol Sulfate) 2.5 Mg/3 Ml Vial.neb, 2.5 MG INH QID PRN for SHORTNESS OF BREATH, (Reported) DURAG KEY MD Aug 25, 2020 18:38
--- NOTE | 2020-08-25 20:21 | IPNPDOC ---
Subjective Date Seen The patient was seen on 08/25/20. Subjective Chief Complaint/HPI Patient is a 60 year old female who is here with neutropenic fever. Last fever on 08/23/2020. She has been afebrile while on antibiotics. This morning, she denies dyspnea, chest pain, or dysuria. She reported having explosive diarrhea yesterday. Will hold her laxatives today. Constitutional: Denies: Fever Pulmonary: Denies: Dyspnea Cardiovascular: Denies: Chest Pain Gastrointestinal: Reports: Diarrhea Genitourinary: Denies: Dysuria Objective Physical Examination General Exam: Positive: Alert, Cooperative, No Acute Distress Eye Exam: Positive: EOMI; Negative: Sclera icteric Neck Exam: Positive: Supple Chest Exam: Positive: Clear to auscultation Heart Exam: Positive: Rate Normal, Regular Rhythm Abdomen Exam: Positive: Normal bowel sounds, Soft Extremity Exam: Negative: Edema Neuro Exam: Positive: Normal Speech, Cranial Nerves 3-12 NL Psych Exam: Positive: Mental status NL, Mood NL Assessment /Plan Assessment Patient is a 60 year old female here with neutropenic fever. Last fever was yesterday evening. No obvious source of infection. Continues on broad spectrum antibiotics and pending blood culture, erhlichiosis, and h.pylori results. Today, consulted Heme/onc for pancytopenia and neutropenic fever. Recommended bone biopsy. Patient requested more time to think about it. Otherwise, also recommended checking HIV. HIV returned negative. Plan/VTE VTE Prophylaxis Ordered?: Yes Plan 1. Neutropenic fever -On admission, WBC 1.3 with neutrophils 70% (ANC 910) -Fever of 101.2 on admission -Unknown etiology, on Zosyn -Pending blood cultures, h.pylori, and erhlichiosis 2. Pancytopenia -Not on medications that would cause pancytopenia -Continue to monitor -Consulted Heme/onc, recommendations appreciated -Patient will need bone marrow biopsy, but can be done either inpatient or outpatient. Patient requests more time to think about it. 3. COPD -Stable -Continue inhalers 4. Hypertension -Continue lisinopril 5. Chronic low back pain -Continue pain regimen 6. Depression/Anxiety -Continue Bupropion 7. DVT ppx -TEDs and SCD VS, I&O, 24H, Fishbone Vital Signs/I&O Vital Signs Date Time Temp Pulse Resp B/P (MAP) Pulse Ox O2 Delivery O2 Flow Rate FiO2 08/25/20 14:00 98.2 72 19 130/68 (88) 95 Room Air 08/25/20 09:20 2.0 I&O- Last 24 Hours up to 6 AM 08/25/20 06:00 Intake Total 2330 ml Output Total 1600 ml Balance 730 ml Laboratory Data 24H LABS Laboratory Tests 2 08/25/20 05:58: Neutrophils (%) (Auto) , Nucleated Red Blood Cells % (auto) 0.0, Neutrophils 37, Band Neutrophils 6, Lymphocytes (Manual) 37, Monocytes (Manual) 12H, Eosinophils (Manual) 1, Atypical Lymphocytes 7H, Platelet Estimate DECREASED, Immature Plate let Fraction 2.6, Anion Gap 0L, Glomerular Filtration Rate > 60.0, Calcium Level 8.6L, Iron Level 43L, Total Iron Binding Capacity 206L, Transferrin % Saturation 20.9, Ferritin 272H, Vitamin B12 Level 492, HIV Antigen/Antibody Combo Qual NEGATIVE CBC/BMP Laboratory Tests 08/25/20 05:58 Microbiology Microbiology 08/23/20 Blood Culture - Preliminary, Resulted No growth after 24 hours . All specim... 08/23/20 Blood Culture - Preliminary, Resulted No growth after 24 hours . All specim... MERYL MOCTEZUMA DO Aug 25, 2020 20:21
[2020-08-25 22:00] VITALS: BP 140/71
[2020-08-26] MEDS: PIPERACILLIN/TAZOBACTAM SOD 3.375 GM in D5W MINI-BAG PLUS 50 ML IV SCH ×4 (01:52→21:23)
[2020-08-26 06:00] VITALS: BP 127/75
[2020-08-26 07:14] LABS: HEMATOCRIT 34.8 % (36.0-47.0); HEMOGLOBIN 10.9 g/dl (12.0-15.5); MEAN CORPUSCULAR HEMOGLOBIN 27.3 pg (27.0-33.0); MEAN CORPUSCULAR HGB CONC 31.3 g/dl (32.0-36.5); PLATELET COUNT, AUTOMATED 112 10^3/uL (150-450); WHITE BLOOD COUNT 2.7 10^3/uL (4.0-10.0)
[2020-08-26 07:35] LABS: BLOOD UREA NITROGEN 14 MG/DL (7-18); CALCIUM LEVEL 8.7 MG/DL (8.8-10.2); CARBON DIOXIDE LEVEL 36 MEQ/L (21-32); CHLORIDE LEVEL 99 MEQ/L (98-107); CREATININE FOR GFR 0.74 MG/DL (0.55-1.30); GLOMERULAR FILTRATION RATE > 60.0 (>45); GLUCOSE, FASTING 76 MG/DL (70-100); POTASSIUM SERUM 4.1 MEQ/L (3.5-5.1); SODIUM LEVEL 139 MEQ/L (136-145)
[2020-08-26 07:45] LABS: ATYPICAL LYMPH 3 % (0-5); BASOPHILS 2 % (0-1); EOSINOPHILS 2 % (0-3); LYMPHOCYTES 42 % (16-44); MONOCYTES 10 % (0-5); NEUTROPHILS 41 % (28-66); PLATELET ESTIMATE DECREASED (NORMAL)
[2020-08-26] MEDS: ADVAIR HFA 115/21MCG INHALER INH SCH (07:50)
[2020-08-26] MEDS: GABAPENTIN 400 MG CAP PO SCH ×3 (08:41→21:23)
[2020-08-26] MEDS: BACLOFEN 10 MG TAB PO SCH ×4 (08:41→21:23)
[2020-08-26] MEDS: MULTIVITAMINS/MINERALS THERAP 1 TAB PO SCH (08:41)
[2020-08-26] MEDS: buPROPion **SR TABLET** (ZYBAN) 150MG PO SCH (08:41)
[2020-08-26] MEDS: lisinopriL 20 MG TAB PO SCH (08:42)
[2020-08-26] MEDS: hydroCHLOROthiazide 12.5 MG CAPSULE PO SCH (08:42)
[2020-08-26] MEDS: BREO ELLIPTA INH SCH (09:00)
[2020-08-26] MEDS ORDERED: ONDANSETRON 4MG/2ML VIAL IV PRN (09:30)
[2020-08-26 14:00] VITALS: BP 141/75
[2020-08-26] MEDS ORDERED: LIDOCAINE 1% MDV 20ML VIAL As Ordered ONE (15:07)
[2020-08-26 15:12] LABS: E CHAFFEENSIS IgG TITER Negative (Neg:<1:64); E CHAFFEENSIS IgM TITER Negative (Neg:<1:20); HUMAN GRANULCYTIC EHRLIC IgG Negative (Neg:<1:64); HUMAN GRANULCYTIC EHRLIC IgM Negative (Neg:<1:20)
[2020-08-26 16:45] VITALS: BP 135/84
[2020-08-26 17:15] VITALS: BP 142/77
[2020-08-26] MEDS: ACETAMINOPHEN TAB 650MG DOSE (2X325MG) PO PRN (17:28)
--- NOTE | 2020-08-26 21:10 | IPNPDOC ---
Subjective Date Seen The patient was seen on 08/26/20. Subjective Chief Complaint/HPI Patient is a 60 year old female who is here with neutropenic fever. Last fever on 08/23/2020. She has been afebrile while on antibiotics. Yesterday, heme/onc saw patient. This morning, patient agreed to bone marrow biopsy. Set up bone marrow biopsy today. Pending results. Otherwise, patient denies fever/chills, chest pain, abdominal pain, or dysuria. She is constipated today. Constitutional: Denies: Chills, Fever Pulmonary: Denies: Dyspnea Cardiovascular: Denies: Chest Pain Gastrointestinal: Reports: Constipation; Denies: Abdominal Pain Genitourinary: Denies: Dysuria Objective Physical Examination General Exam: Positive: Alert, Cooperative, No Acute Distress Eye Exam: Positive: EOMI; Negative: Sclera icteric Neck Exam: Positive: Supple Chest Exam: Positive: Clear to auscultation Heart Exam: Positive: Rate Normal, Regular Rhythm Abdomen Exam: Positive: Normal bowel sounds, Soft Extremity Exam: Negative: Edema Neuro Exam: Positive: Normal Speech, Cranial Nerves 3-12 NL Psych Exam: Positive: Mental status NL, Mood NL Assessment /Plan Assessment Patient is a 60 year old female here with neutropenic fever. Last fever was yesterday evening. No obvious source of infection. Continues on broad spectrum antibiotics. Blood cultures negative for 48 hours. Erhlichiosis and h.pylori are negative. Hematology/Oncology was consulted. Pending bone marrow biopsy results. Plan/VTE VTE Prophylaxis Ordered?: Yes Plan 1. Neutropenic fever -On admission, WBC 1.3 with neutrophils 70% (ANC 910) -Fever of 101.2 on admission -Unknown etiology, on Zosyn -Blood cultures negative for 48 hours -H.pylori and erhlichiosis negative 2. Pancytopenia -Not on medications that would cause pancytopenia -Continue to monitor -Consulted Heme/onc, recommendations appreciated -Bone marrow biopsy today, pending results 3. COPD -Stable -Continue inhalers 4. Hypertension -Continue lisinopril 5. Chronic low back pain -Continue pain regimen 6. Depression/Anxiety -Continue Bupropion 7. DVT ppx -TEDs and SCD VS, I&O, 24H, Fishbone Vital Signs/I&O Vital Signs Date Time Temp Pulse Resp B/P (MAP) Pulse Ox O2 Delivery O2 Flow Rate FiO2 08/26/20 17:15 98.2 68 18 142/77 (98) 98 Room Air 08/25/20 09:20 2.0 I&O- Last 24 Hours up to 6 AM 08/26/20 05:59 Intake Total 1500 ml Balance 1500 ml Laboratory Data 24H LABS Laboratory Tests 2 08/26/20 06:44: Neutrophils (%) (Auto) , Neutrophils # (Auto) , Nucleated Red Blood Cells % (auto) 0.0, Neutrophils 41, Lymphocytes (Manual) 42, Monocytes (Manual) 10H, Eosinophils (Manual) 2, Basophils (Manual) 2H, Atypical Lymphocytes 3, Red Blood Cell Morphology NORMAL, Platelet Estimate DECREASED, Anion Gap 4L, Glomerular Filtration Rate > 60.0, Calcium Level 8.7L CBC/BMP Laboratory Tests 08/26/20 06:44 Microbiology Microbiology 08/23/20 Blood Culture - Preliminary, Resulted No Growth after 48 hours. All Specime... 08/23/20 Blood Culture - Preliminary, Resulted No Growth after 48 hours. All Specime... MERYL MOCTEZUMA DO Aug 26, 2020 21:06
[2020-08-26] MEDS: DOCUSATE SODIUM 100 MG CAP PO SCH (21:23)
[2020-08-26 22:00] VITALS: BP 108/81
[2020-08-27] MEDS: PIPERACILLIN/TAZOBACTAM SOD 3.375 GM in D5W MINI-BAG PLUS 50 ML IV SCH ×4 (02:25→20:15)
[2020-08-27] MEDS: ACETAMINOPHEN TAB 650MG DOSE (2X325MG) PO PRN (05:38)
[2020-08-27 06:00] VITALS: BP 125/81
[2020-08-27 06:34] LABS: BLOOD UREA NITROGEN 14 MG/DL (7-18); CARBON DIOXIDE LEVEL 37 MEQ/L (21-32); CHLORIDE LEVEL 97 MEQ/L (98-107); CREATININE FOR GFR 0.82 MG/DL (0.55-1.30); GLOMERULAR FILTRATION RATE > 60.0 (>45); GLUCOSE, FASTING 87 MG/DL (70-100); SODIUM LEVEL 138 MEQ/L (136-145)
[2020-08-27 06:47] LABS: HEMATOCRIT 34.8 % (36.0-47.0); HEMOGLOBIN 10.9 g/dl (12.0-15.5); MEAN CORPUSCULAR HEMOGLOBIN 26.8 pg (27.0-33.0); MEAN CORPUSCULAR HGB CONC 31.3 g/dl (32.0-36.5); MEAN CORPUSCULAR VOLUME 85.7 fl (80.0-96.0); PLATELET COUNT, AUTOMATED 147 10^3/uL (150-450); RED BLOOD COUNT 4.06 10^6/uL (4.00-5.40); WHITE BLOOD COUNT 3.3 10^3/uL (4.0-10.0)
[2020-08-27 06:49] LABS: ATYPICAL LYMPH 1 % (0-5); EOSINOPHILS 2 % (0-3); LYMPHOCYTES 37 % (16-44); MONOCYTES 9 % (0-5); NEUTROPHILS 51 % (28-66)
[2020-08-27 06:50] LABS: PLATELET ESTIMATE NORMAL (NORMAL)
[2020-08-27] MEDS: lisinopriL 20 MG TAB PO SCH (08:50)
[2020-08-27] MEDS: GABAPENTIN 400 MG CAP PO SCH ×3 (08:50→20:15)
[2020-08-27] MEDS: buPROPion **SR TABLET** (ZYBAN) 150MG PO SCH (08:50)
[2020-08-27] MEDS: DOCUSATE SODIUM 100 MG CAP PO SCH ×2 (08:50→20:15)
[2020-08-27] MEDS: BACLOFEN 10 MG TAB PO SCH ×4 (08:51→20:15)
[2020-08-27] MEDS: MULTIVITAMINS/MINERALS THERAP 1 TAB PO SCH (08:51)
[2020-08-27] MEDS: hydroCHLOROthiazide 12.5 MG CAPSULE PO SCH (08:51)
[2020-08-27] MEDS ORDERED: MIRALAX *UNIT DOSE* 17GM PACKET PO PRN (09:00)
[2020-08-27] MEDS: BREO ELLIPTA INH SCH (09:08)
--- NOTE | 2020-08-27 12:26 | REP ---
INDICATION: bone marrow biopsy. Neutropenic fever COMPARISON: None. TECHNIQUE: The risks and benefits of the procedure were explained to the patient and informed consent was obtained. The left pelvic wing was localized using CT guidance. The skin was prepped and draped in a sterile fashion. 1% lidocaine was used as a local anesthetic. FINDINGS: Using CT guidance an 11 gauge coaxial bone biopsy system was inserted and 4 cc of marrow fluid was withdrawn. Two cores were then obtained. IMPRESSION: CT-guided bone marrow biopsy. The patient tolerated the procedure well and there were no immediate complications. After the appropriate amount of monitored convalescence, the patient was discharged from the department. <Electronically signed by Heath Campbell > 08/27/20 1158 <Electronically signed by Yariel Aparicio > 08/27/20 1463
--- NOTE | 2020-08-27 19:22 | IPNPDOC ---
Subjective Date Seen The patient was seen on 08/27/20. Subjective Chief Complaint/HPI Patient is a 60 year old female who is here with neutropenic fever and pancytopenia. Last fever was on 08/23/2020. Yesterday, she had bone marrow biopsy. She was exhausted and fatigued from the procedure. Otherwise, this morning, she had a headache. Denies fever, chest pain, abdominal pain, or dysuria. Constitutional: Denies: Fever ENT: Reports: Head Aches Pulmonary: Denies: Dyspnea Cardiovascular: Denies: Chest Pain Gastrointestinal: Denies: Abdominal Pain Genitourinary: Denies: Dysuria Objective Physical Examination General Exam: Positive: Alert, Cooperative, No Acute Distress Eye Exam: Positive: EOMI; Negative: Sclera icteric Neck Exam: Positive: Supple Chest Exam: Positive: Clear to auscultation Heart Exam: Positive: Rate Normal, Regular Rhythm Abdomen Exam: Positive: Normal bowel sounds, Soft Extremity Exam: Negative: Edema Neuro Exam: Positive: Normal Speech, Cranial Nerves 3-12 NL Psych Exam: Positive: Mental status NL, Mood NL Assessment /Plan Assessment Patient is a 60 year old female here with neutropenic fever. Last fever was yesterday evening. No obvious source of infection. Continues on broad spectrum antibiotics. Blood cultures negative for 48 hours. Erhlichiosis and h.pylori are negative. Hematology/Oncology was consulted. Pending bone marrow biopsy results. Spoke with Heme/Onc today. Patient can follow up in their office to go over results. Plan/VTE VTE Prophylaxis Ordered?: Yes Plan 1. Neutropenic fever -On admission, WBC 1.3 with neutrophils 70% (ANC 910) -Fever of 101.2 on admission -Unknown etiology, on Zosyn -Blood cultures negative for 72 hours -H.pylori and erhlichiosis negative 2. Pancytopenia -Not on medications that would cause pancytopenia -Continue to monitor -Consulted Heme/onc, recommendations appreciated -Bone marrow biopsy 08/26/2020, pending results 3. COPD -Stable -Continue inhalers 4. Hypertension -Continue lisinopril 5. Chronic low back pain -Continue pain regimen 6. Depression/Anxiety -Continue Bupropion 7. DVT ppx -TEDs and SCD Dispo: Possible discharge tomorrow if WBC continues to improve. Would not need outpatient antibiotics. Follow up with Heme/Onc about bone marrow results. VS, I&O, 24H, [place] Vital Signs/I&O Vital Signs Date Time Temp Pulse Resp B/P (MAP) Pulse Ox O2 Delivery O2 Flow Rate FiO2 08/27/20 08:50 125/81 08/27/20 06:00 98.3 71 18 97 Room Air 08/25/20 09:20 2.0 I&O- Last 24 Hours up to 6 AM 08/27/20 05:59 Intake Total 1100 ml Output Total 0 ml Balance 1100 ml Laboratory Data 24H LABS Laboratory Tests 2 08/27/20 05:42: Neutrophils (%) (Auto) , Nucleated Red Blood Cells % (auto) 0.0, Neutrophils 51, Lymphocytes (Manual) 37, Monocytes (Manual) 9H, Eosinophils (Manual) 2, Atypical Lymphocytes 1, Red Blood Cell Morphology NORMAL, Platelet Estimate NORMAL, Anion Gap 4L, Glomerular Filtration Rate > 60.0, Calcium Level 9.0 CBC/BMP Laboratory Tests 08/27/20 05:42 Microbiology Microbiology 08/23/20 Blood Culture - Preliminary, Resulted No Growth after 72 hours. All specime... 08/23/20 Blood Culture - Preliminary, Resulted No Growth after 72 hours. All specime... MERYL MOCTEZUMA DO Aug 27, 2020 19:22
[2020-08-27 20:00] VITALS: BP 149/83
[2020-08-28] MEDS: ACETAMINOPHEN TAB 650MG DOSE (2X325MG) PO PRN (01:35)
[2020-08-28] MEDS: PIPERACILLIN/TAZOBACTAM SOD 3.375 GM in D5W MINI-BAG PLUS 50 ML IV SCH ×3 (01:35→09:06)
[2020-08-28 05:41] VITALS: BP 156/80
[2020-08-28 06:17] LABS: BASO % 0.3 % (0.0-1.0); EOS # 0.1 10^3/uL (0.0-0.5); EOS % 2.9 % (0.0-3.0); HEMATOCRIT 34.9 % (36.0-47.0); LYMPH % 29.4 % (24.0-44.0); MEAN CORPUSCULAR HGB CONC 31.5 g/dl (32.0-36.5); MEAN CORPUSCULAR VOLUME 85.7 fl (80.0-96.0); MONO # 0.2 10^3/uL (0.0-0.8); MONO % 6.6 % (0.0-5.0); NEUTROPHILS # 2.1 10^3/uL (1.5-8.5); NEUTROPHILS % 60.5 % (36.0-66.0); PLATELET COUNT, AUTOMATED 166 10^3/uL (150-450); RED BLOOD COUNT 4.07 10^6/uL (4.00-5.40); WHITE BLOOD COUNT 3.5 10^3/uL (4.0-10.0)
[2020-08-28 06:47] LABS: BLOOD UREA NITROGEN 13 MG/DL (7-18); CALCIUM LEVEL 9.2 MG/DL (8.8-10.2); CARBON DIOXIDE LEVEL 36 MEQ/L (21-32); CHLORIDE LEVEL 97 MEQ/L (98-107); CREATININE FOR GFR 0.76 MG/DL (0.55-1.30); GLOMERULAR FILTRATION RATE > 60.0 (>45); GLUCOSE, FASTING 96 MG/DL (70-100); POTASSIUM SERUM 3.6 MEQ/L (3.5-5.1); SODIUM LEVEL 135 MEQ/L (136-145)
[2020-08-28] MEDS: BREO ELLIPTA INH SCH (08:29)
[2020-08-28 09:02] VITALS: BP 156/80
[2020-08-28] MEDS: BACLOFEN 10 MG TAB PO SCH (09:02)
[2020-08-28] MEDS: MULTIVITAMINS/MINERALS THERAP 1 TAB PO SCH (09:02)
[2020-08-28] MEDS: GABAPENTIN 400 MG CAP PO SCH (09:02)
[2020-08-28] MEDS: lisinopriL 20 MG TAB PO SCH (09:02)
[2020-08-28] MEDS: hydroCHLOROthiazide 12.5 MG CAPSULE PO SCH (09:02)
[2020-08-28] MEDS: DOCUSATE SODIUM 100 MG CAP PO SCH (09:02)
[2020-08-28] MEDS: buPROPion **SR TABLET** (ZYBAN) 150MG PO SCH (09:03)
[2020-08-28] MEDS ORDERED: DOCU100C16 PO (09:20)
[2020-08-28] MEDS ORDERED: PEG1POW PO (09:20)
--- NOTE | 2020-08-28 21:11 | DS.PDOC ---
Discharge Summary General Date of Admission Aug 24, 2020 at 01:51 Date of Discharge Aug 28, 2020 Attending Physician: MERYL MOCTEZUMA DO Specialist/Consultants [facility]On[facility], Dr. Yan Discharge Summary PROCEDURES PERFORMED DURING STAY: Bone marrow biopsy on 08/26/2020 ADMITTING DIAGNOSES: 1. Neutropenic fever 2. Pancytopenia 3. COPD 4. Hypertension 5. Chronic low back pain 6. Depression/Anxiety DISCHARGE DIAGNOSES: 1. Neutropenic fever 2. Pancytopenia 3. COPD 4. Hypertension 5. Chronic low back pain 6. Depression/Anxiety COMPLICATIONS/CHIEF COMPLAINT: Neutropenic Fever. HISTORY OF PRESENT ILLNESS: Patient is a 60-year-old female who presented to the [facility] emergency department with complaint of abdominal pain and fever. She stated that on Sunday (08/20) into Sunday (08/21), she developed some abdominal pain was mainly located in her lower abdomen. She stated that on Sunday she had developed fevers. Additionally she did note some nausea and had a couple episodes of emesis. She denied any diarrhea. She does state that she had some constipation. Patient stated that she continued to have abdominal pain as well as fevers and chills. She is also currently presented to the [facility] emergency department. On presentation to the emergency department the patient was found to be febrile with a temperature of 101.2 but otherwise vitally stable. Laboratory examination demonstrated a pancytopenia with a leukocyte count of 1.3 with moderate neutrophilia, absolute neutrophil count of 900, anemia with hemoglobin 11 and, cytopenia with the count of 83. Blood cultures were drawn and the patient was started on empiric antibiotics for neutropenic fever. Hospitalist service was consulted and the patient was admitted for further evaluation and management HOSPITAL COURSE: During her hospitalization, she was empirically treated on Zosyn. H. pylori and erhlichiosis returned negative. Blood cultures have been negative for 72 hours. No source of infection at this time, but all cell lines have been improving. Hematology/oncology, Dr. Yan was consulted. Recommended bone marrow biopsy. Bone marrow biopsy obtained on 08/26/2020. May take up to 2 weeks to have results. Today patient felt well. Denied any fever or chills, lightheadedness or dizziness, chest pain, abdominal pain, dysuria. She felt ready for home and was subsequently discharged home DISCHARGE MEDICATIONS: Please see below. ALLERGIES: Please see below. PHYSICAL EXAMINATION ON DISCHARGE: VITAL SIGNS: Please see below. GENERAL: Comfortable, in no apparent distress. HEENT: Head normocephalic/atraumatic, EOMI, sclera clear. NECK: Supple, no JVD. RESPIRATORY: Lungs clear to auscultation bilaterally, no rales, wheeze or rhonchi. CARDIOVASCULAR: Regular rate and rhythm. ABDOMEN: Soft, nontender, no guarding or rebound tenderness. Normal bowel sounds. MUSCLE SKELETAL: Muscle strength 5/5 in all extremities. NEUROLOGICAL: CN 312 grossly intact, no focal deficits noted. PSYCHOLOGICAL: Normal mood and affect LABORATORY DATA: Please see below. IMAGING: CT of abdomen and pelvis 1. Thickening of the wall of the gastric antrum, which may indicate gastritis. 2. Sigmoid diverticulosis without evidence for diverticulitis. 3. Small fat containing periumbilical hernia located just to the left of the umbilicus that is similar in appearance compared to the prior CT on 05/07/2018. Chest x-ray No radiographic evidence for an acute cardiopulmonary process. PROGNOSIS: Stable ACTIVITY: As tolerated. DIET: As tolerated DISCHARGE PLAN: Home DISPOSITION: 01 Home, Self-Care. DISCHARGE INSTRUCTIONS: 1. Follow-up with her PCP within 7 days 2. Follow-up with hematology/oncology in 2 weeks ITEMS TO FOLLOWUP ON ON OUTPATIENT: 1. Bone marrow biopsy results. DISCHARGE CONDITION: Stable. Total time spent on discharge planning, discharge summary, and medication reconciliation: 35 minutes Vital Signs/I&Os Vital Signs Date Time Temp Pulse Resp B/P (MAP) Pulse Ox O2 Delivery O2 Flow Rate FiO2 08/28/20 09:02 156/80 08/28/20 05:41 98.5 78 20 98 Nasal Cannula 2.0 I&O- Last 24 Hours up to 6 AM 08/28/20 06:00 Intake Total 1750 ml Output Total 0 ml Balance 1750 ml Laboratory Data Labs 24H Laboratory Tests 2 08/28/20 05:59: Immature Granulocyte % (Auto) 0.3, Neutrophils (%) (Auto) 60.5, Lymphocytes (%) (Auto) 29.4, Monocytes (%) (Auto) 6.6H, Eosinophils (%) (Auto) 2.9, Basophils (%) (Auto) 0.3, Neutrophils # (Auto) 2.1, Lymphocytes # (Auto) 1.0L, Monocytes # (Auto) 0.2, Eosinophils # (Auto) 0.1, Basophils # (Auto) 0.0, Nucleated Red Blood Cells % (auto) 0.0, Anion Gap 2L, Glomerular Filtration Rate > 60.0, Calcium Level 9.2 CBC/BMP Laboratory Tests 08/28/20 05:59 Microbiology Microbiology 08/23/20 Blood Culture - Preliminary, Resulted No Growth after 72 hours. All specime... 08/23/20 Blood Culture - Preliminary, Resulted No Growth after 72 hours. All specime... Discharge Medications Scheduled Baclofen (Baclofen) 10 Mg Tab, 10 MG PO QID, (Reported) Bupropion Hcl (Bupropion HCl Sr) 150 Mg Tab, 150 MG PO DAILY, (Reported) Docusate Sodium (Docusate Sodium) 100 Mg Capsule, 100 MG PO BID Fluticasone/Vilanterol (Breo Ellipta 100-25 Mcg INH) 1 Each Blst.w.dev, 1 PUFF INH DAILY, (Reported) Gabapentin (Gabapentin) 800 Mg Tablet, 800 MG PO TID, (Reported) Hydrochlorothiazide (Hydrochlorothiazide) 12.5 Mg Tablet, 12.5 MG PO DAILY, (Reported) Lisinopril (Lisinopril) 20 Mg Tab, 20 MG PO DAILY, (Reported) Meloxicam (Meloxicam) 15 Mg Tab, 15 MG PO DAILY, (Reported) Multivitamins (Thera M Plus Tablet) 1 Each Tablet, 1 TAB PO DAILY, (Reported) Sertraline HCl (Sertraline HCl) 100 Mg Tablet, 100 MG PO DAILY, (Reported) Trazodone HCl (Trazodone HCl) 100 Mg Tablet, 200 MG PO QHS, (Reported) Scheduled PRN Albuterol Sulf (Albuterol Sulfate) 2.5 Mg/3 Ml Vial.neb, 2.5 MG INH QID PRN for SHORTNESS OF BREATH, (Reported) Polyethylene Glycol 3350 (Polyethylene Glycol 3350) 17 Gm Powd.pack, 1 PKT PO DAILYPRN PRN for CONSTIPATION Allergies Coded Allergies: phenazopyridine (Verified Allergy, Mild, RASH, 08/23/20) TAPE (Verified Allergy, Unknown, 06/18/17) MERYL MOCTEZUMA DO Aug 28, 2020 21:11
== END 2020-08-28 13:25 | disposition home or self-care (01) | DRG 810 ==
LOC: M ED 20:23 → M ED INP 08-24 01:51 → ENRESERVTM 08-24 03:18 → ENRESERVDT 08-24 03:18 → M MS5PR 08-24 04:08
PROVIDERS: ADMIT Internal Medicine; ATTEND Internal Medicine
PROC: 07DR3ZX Extraction of Iliac Bone Marrow, Percutaneous Approach, Diagnostic (ICD-10-PCS; principal; 2020-08-26 15:00)
DX: D70.9 Neutropenia, unspecified (principal); I10 Essential (primary) hypertension; D61.818 Other pancytopenia; F32.9 Major depressive disorder, single episode, unspecified; M54.5 Low back pain; Z87.891 Personal history of nicotine dependence; J44.9 Chronic obstructive pulmonary disease, unspecified; Z79.1 Long term (current) use of non-steroidal anti-inflammatories (NSAID); Z79.899 Other long term (current) drug therapy; Z20.828 Contact with and (suspected) exposure to other viral communicable diseases

== ENCOUNTER → 2020-11-06 | Outpatient (CLI) | payer MEDICARE ==
[~2020-11-06] MED LIST changes: +ALBU83IN INH; +BREO1INH INH; +DOCU100C16 PO; +GABA800T4 PO; +PEG1POW PO; +TRAZ-189 PO; +VITMTA PO
== END ==
LOC: M LABSMTC 09:08
PROVIDERS: ATTEND Anesthesiology
DX: Z01.812 Encounter for preprocedural laboratory examination (principal); Z20.828 Contact with and (suspected) exposure to other viral communicable diseases

== ENCOUNTER 2020-11-11 10:10 | Day surgery (SDC) | payer MEDICARE ==
[~2020-11-11] VITALS: Ht 162.6 cm; Wt 79.7 kg
[~2020-11-11 10:10] MED LIST changes: +NS 1,000 ML IV ONE
[2020-11-11] MEDS ORDERED: propofoL 200 MG/20 ML VIAL As Ordered ONE (12:36)
[2020-11-11] MEDS ORDERED: LIDOCAINE 2% 100MG/5ML SDV (FOR ANES.) As Ordered ONE (12:36)
--- NOTE | 2020-11-11 12:41 | ROOR ---
Patient Name: Liza Fischer Procedure Date: 11/11/2020 12:26 PM Date of : 1960 Age: 60 Room: [facility] Gender: Female Note Status: Finalized Procedure: Upper GI endoscopy Indications: Unexplained iron deficiency anemia Providers: Maxwell MITCHELL MD Referring MD: MARIANNE CLOUD DO Requesting Provider: Medicines: Monitored Anesthesia Care Complications: No immediate complications. Procedure: Pre-Anesthesia Assessment: - The heart rate, respiratory rate, oxygen saturations, blood pressure, adequacy of pulmonary ventilation, and response to care were monitored throughout the procedure. The Endoscope was introduced through the mouth, and advanced to the second part of duodenum. The upper GI endoscopy was accomplished without difficulty. The patient tolerated the procedure well. Findings: Small Hiatal Hernia. The esophagus was normal. The stomach was normal. (large volume) The examined duodenum was normal. Impression: - Small Hiatal Hernia. - Normal esophagus. - Normal stomach. - Normal examined duodenum. - No specimens collected. Recommendation: - Observe patient's clinical course. Procedure Code(s): --- Professional --- 08878, Esophagogastroduodenoscopy, flexible, transoral; diagnostic, including collection of specimen(s) by brushing or washing, when performed (separate procedure) Diagnosis Code(s): --- Professional --- D50.9, Iron deficiency anemia, unspecified CPT copyright 2019 [employer]. All rights reserved. The codes documented in this report are preliminary and upon aircraft charter dispatcher review may be revised to meet current compliance requirements. Maxwell Mitchell MD Maxwell MITCHELL MD 11/11/2020 12:41:35 PM Electronically signed by Maxwell MITCHELL MD Number of Addenda: 0 Note Initiated On: 11/11/2020 12:26 PM Estimated Blood Loss: Estimated blood loss: none.
--- NOTE | 2020-11-11 12:56 | ROOR ---
Patient Name: Liza Fischer Procedure Date: 11/11/2020 12:27 PM Date of : 1960 Age: 60 Room: [facility] Gender: Female Note Status: Finalized Procedure: Colonoscopy Indications: Unexplained iron deficiency anemia. History of colon polyps Providers: Maxwell MITCHELL MD Referring MD: MARIANNE CLOUD DO Requesting Provider: Medicines: Monitored Anesthesia Care Complications: No immediate complications. Procedure: Pre-Anesthesia Assessment: - The heart rate, respiratory rate, oxygen saturations, blood pressure, adequacy of pulmonary ventilation, and response to care were monitored throughout the procedure. The Colonoscope was introduced through the anus and advanced to 10 cm into the ileum. The colonoscopy was performed without difficulty. The patient tolerated the procedure well. The quality of the bowel preparation was good. Findings: The perianal and digital rectal examinations were normal. Multiple medium-mouthed diverticula were found in the sigmoid colon. Small Internal Hemorrhoids. The exam was otherwise without abnormality on direct and retroflexion views. Impression: - Diverticulosis in the sigmoid colon. - Small Internal Hemorrhoids. - The examination was otherwise normal on direct and retroflexion views. - No specimens collected. Recommendation: - Repeat colonoscopy in 5 years for surveillance. Procedure Code(s): --- Professional --- 91905, Colonoscopy, flexible; diagnostic, including collection of specimen(s) by brushing or washing, when performed (separate procedure) Diagnosis Code(s): --- Professional --- K57.30, Diverticulosis of large intestine without perforation or abscess without bleeding D50.9, Iron deficiency anemia, unspecified CPT copyright 2019 [employer]. All rights reserved. The codes documented in this report are preliminary and upon medical coder review may be revised to meet current compliance requirements. Maxwell Mitchell MD Maxwell MITCHELL MD 11/11/2020 12:55:39 PM Electronically signed by Maxwell MITCHELL MD Number of Addenda: 0 Note Initiated On: 11/11/2020 12:27 PM Estimated Blood Loss: Estimated blood loss: none.
[2020-11-11 13:15] VITALS: BP 152/67
== END 2020-11-11 13:21 | disposition home or self-care (01) ==
LOC: M OPP 10:10
PROVIDERS: ATTEND Internal Medicine Gastroenterology
DX: D50.9 Iron deficiency anemia, unspecified (principal); Z86.010 Personal history of colon polyps; K57.30 Diverticulosis of large intestine without perforation or abscess without bleeding; K64.8 Other hemorrhoids; K44.9 Diaphragmatic hernia without obstruction or gangrene; I10 Essential (primary) hypertension; M85.88 Other specified disorders of bone density and structure, other site; M19.90 Unspecified osteoarthritis, unspecified site; F32.9 Major depressive disorder, single episode, unspecified; J44.9 Chronic obstructive pulmonary disease, unspecified; M54.2 Cervicalgia; Z86.711 Personal history of pulmonary embolism; Z87.891 Personal history of nicotine dependence; Z96.89 Presence of other specified functional implants; Z88.8 Allergy status to other drugs, medicaments and biological substances; Z91.09 Other allergy status, other than to drugs and biological substances; Z79.51 Long term (current) use of inhaled steroids; Z79.899 Other long term (current) drug therapy; Z80.3 Family history of malignant neoplasm of breast

== ENCOUNTER 2023-01-01 19:49 | Observation (INO) | payer MEDICARE ==
[~2023-01-01] VITALS: Ht 170.2 cm; Wt 81.5 kg
[~2023-01-01 19:49] MED LIST changes: +ALBU2.5V10 INH; -ALBU83IN INH; +BUPR-71 PO; -BUPR150T5 PO; +GABA-283 PO; -GABA-845 PO; -LISI-538 PO; +LISI20TA33 PO; -NS 1,000 ML IV ONE; -PEG1POW PO; +POLY17PO18 PO
[2023-01-01] MEDS ORDERED: COMBIVENT RESPIMAT 100-20MCG INHALER 4GM INH STA (20:01)
[2023-01-01] MEDS ORDERED: methylPREDNISolone 125MG 2ML VIAL IV ONE (20:05)
[2023-01-01] MEDS ORDERED: ACETAMINOPHEN 325 MG TAB PO ONE (20:05)
[2023-01-01 20:28] LABS: BASO % 0.1 % (0.0-1.0); EOS % 0.2 % (0.0-3.0); HEMATOCRIT 39.6 % (36.0-47.0); HEMOGLOBIN 12.1 g/dl (12.0-15.5); LYMPH # 0.6 10^3/uL (1.5-5.0); LYMPH % 5.3 % (24.0-44.0); MEAN CORPUSCULAR HEMOGLOBIN 27.2 pg (27.0-33.0); MEAN CORPUSCULAR HGB CONC 30.6 g/dl (32.0-36.5); MONO # 0.6 10^3/uL (0.0-0.8); MONO % 5.6 % (2.0-8.0); NEUTROPHILS # 9.1 10^3/uL (1.5-8.5); NEUTROPHILS % 88.5 % (36.0-66.0); PLATELET COUNT, AUTOMATED 182 10^3/uL (150-450); RED BLOOD COUNT 4.45 10^6/uL (4.00-5.40); WHITE BLOOD COUNT 10.3 10^3/uL (4.0-10.0)
[2023-01-01 20:45] LABS: CK-MB VALUE MASS < 1.0 NG/ML (<3.6)
[2023-01-01 20:47] LABS: ALBUMIN 3.5 G/DL (3.2-5.2); ALKALINE PHOSPHATASE 85 U/L (46-116); ALT/SGPT 30 U/L (7.0-40); AST/SGOT 35 U/L (<34); BILIRUBIN,DIRECT 0.5 MG/DL (<0.4); BILIRUBIN,TOTAL 1.1 MG/DL (0.3-1.2); BLOOD UREA NITROGEN 23 MG/DL (9-23); CALCIUM LEVEL 8.4 MG/DL (8.3-10.6); CARBON DIOXIDE LEVEL 35 MMOL/L (20-31); CHLORIDE LEVEL 98 MMOL/L (98-107); CPK CREATINE PHOSPHOKINASE 76 U/L (34-145); CREATININE FOR GFR 0.95 MG/DL (0.55-1.30); GLOMERULAR FILTRATION RATE > 60.0 (>45); GLUCOSE, FASTING 108 MG/DL (74-106); MB/CK RELATIVE INDEX 1.31 (< OR =4); POTASSIUM SERUM 3.7 MMOL/L (3.5-5.1); SODIUM LEVEL 138 MMOL/L (136-145); TOTAL PROTEIN 6.7 G/DL (5.7-8.2)
[2023-01-01 20:48] LABS: THYROID STIMULATING HORMONE 0.198 uIU/ML (0.55-4.78); THYROXINE (T4) 8.5 UG/DL (4.5-10.9)
[2023-01-01 21:41] LABS: CK-MB VALUE MASS < 1.0 NG/ML (<3.6)
[2023-01-01 21:43] LABS: CPK CREATINE PHOSPHOKINASE 61 U/L (34-145); MB/CK RELATIVE INDEX 1.63 (< OR =4)
[2023-01-01] MEDS ORDERED: ALBUTEROL SULFATE 2.5MG/0.5ML INH NEB SOLN NEB PRN (22:35)
[2023-01-01] MEDS ORDERED: ACETAMINOPHEN TAB 650MG DOSE (2X325MG) PO PRN (22:35)
[2023-01-01 23:11] VITALS: BP 141/78
[2023-01-01] MEDS ORDERED: ZOLO100T PO (23:41)
[2023-01-01] MEDS ORDERED: BREO1INH3 INH (23:41)
[2023-01-01] MEDS ORDERED: ALBU8.5H INH (23:41)
[2023-01-01] MEDS ORDERED: MIRA1POW3 PO (23:41)
[2023-01-01] MEDS ORDERED: C 50TAB PO (23:41)
[2023-01-01] MEDS ORDERED: OYST500T92 PO (23:41)
[2023-01-01] MEDS ORDERED: BUPR-368 PO (23:41)
[2023-01-01] MEDS ORDERED: HOME MED LIST COMPLETE! XX SCH (23:45)
[2023-01-01] MEDS: DOXYCYCLINE HYCLATE 100MG TABLET PO SCH (23:47)
[2023-01-02] MEDS: IPRATROPIUM 0.5MG/ALBUTEROL 2.5MG INH SOL UD 3ML (DUONEB) NEB SCH ×2 (02:00→07:47)
[2023-01-02 06:00] VITALS: BP 116/70
[2023-01-02] MEDS ORDERED: predniSONE 20 MG TAB PO SCH (09:00)
[2023-01-02] MEDS: DOXYCYCLINE HYCLATE 100MG TABLET PO SCH (09:00)
[2023-01-02] MEDS ORDERED: DOXY100T PO (09:46)
[2023-01-02] MEDS ORDERED: PRED10TA2 PO (09:46)
[2023-01-02] MEDS ORDERED: ACET1TAB55 PO (09:46)
== END 2023-01-02 12:09 | disposition home or self-care (01) ==
LOC: M ED 19:49 → M ED INP 19:50 → UNDOADMOB 22:25 → M MSPAV 23:32
PROVIDERS: ADMIT Internal Medicine; ATTEND Student in an Organized Health Care Education/Training Program
DX: J12.3 Human metapneumovirus pneumonia (principal); J44.1 Chronic obstructive pulmonary disease with (acute) exacerbation; I10 Essential (primary) hypertension; M54.50 Low back pain, unspecified; F32.A Depression, unspecified; R91.1 Solitary pulmonary nodule; Z88.8 Allergy status to other drugs, medicaments and biological substances; Z79.52 Long term (current) use of systemic steroids; Z79.899 Other long term (current) drug therapy; Z99.81 Dependence on supplemental oxygen; Z87.891 Personal history of nicotine dependence
CPT/HCPCS: 36415; 71045; 80048; 80076; 82550; 82553; 83605; 83880; 84436; 84439; 84443; 84484; 85025; 87040; 87070; 87077; 87186; 87205; 87486; 87581; 87633; 87798; 93005; 93041; 94640; 94760; 96374; 99285; G0378; J2930